=== PATIENT | male | born 1960 | race Caucasian/White ===

== ENCOUNTER 2020-10-12 12:07 | Outpatient (REF) | payer MEDICARE, MEDICAID, SELFPAY | END 2020-10-12 12:08 | disposition home or self-care (01) | LOC: HO.HAP 12:07 | PROVIDERS: Visit Provider Student in an Organized Health Care Education/Training Program | DX: Z46.1 Encounter for fitting and adjustment of hearing aid (principal) | CPT/HCPCS: V5266 ==

== ENCOUNTER 2021-03-01 15:49 | Emergency (ER) | payer MEDICARE, MEDICAID, SELFPAY ==
--- NOTE | 2021-03-01 | ECG_ITS ---
Test Reason : HTN Blood Pressure : / mmHG Vent. Rate : 069 BPM Atrial Rate : 069 BPM P-R Int : 162 ms QRS Dur : 094 ms QT Int : 394 ms P-R-T Axes : 066 023 038 degrees QTc Int : 422 ms Normal sinus rhythm with sinus arrhythmia Normal ECG When compared with ECG of 21-OCT-2016 12:43, No significant change was found Referred By: Erin Thomas Electronically Signed By:BRETT REYNOSO
--- NOTE | ~2021-03-01 | CT_ITS ---
EXAMINATION: CT HEAD WITHOUT CONTRAST CLINICAL INFORMATION: Hyperdense urgency with left-sided weakness. COMPARISON: None TECHNIQUE: Contiguous axial imaging was performed from the skull base to vertex without intravenous administration of contrast. This CT examination was performed using dose optimization techniques as appropriate, variously including the following: *Automated exposure control *Adjustment of mA and/or kV according to patient size (this includes techniques or standardized protocols for targeted exams where dose is matched to indication/reason for exam; i.e. extremities or head) *Use of iterative reconstruction technique DLP: 781 mGy-cm FINDINGS: There is no evidence of acute intracranial hemorrhage or territorial infarction. No abnormal mass effect or midline shift is seen. There is punctate bibasilar ganglia calcifications. Garay to white matter differentiation is well preserved. No extra-axial fluid collections are identified. The ventricles are normal in size. There is no abnormal attenuation within the brain parenchyma. The osseous structures and soft tissues are normal. The mastoid air cells and visualized portions of the paranasal sinuses are well aerated. CT/CT head/brain wo con IMPRESSION: No acute intracranial pathology.
[2021-03-01 16:00] VITALS: BP 191/98; PULSE 74; RESP 16; TEMP 36.6; O2SAT 99; BMI 27.2
--- NOTE | 2021-03-01 16:14 | ED_ITS ---
HPI - General Adult General Chief complaint: General Medical <TWILA Betancourt - Last Filed: 03/01/21 18:26> Stated complaint: HTN 203/109,LEFT SIDED FACIAL NUMBNESS <TWILA Betancourt - Last Filed: 03/01/21 18:26> Time Seen by Provider: 03/01/21 16:02 <TWILA Betancourt - Last Filed: 03/01/21 18:26> Source: patient and EMS <TWILA Betancourt - Last Filed: 03/01/21 18:26> Mode of arrival: EMS <TWILA Betancourt Last Filed: 03/01/21 18:26> Limitations: no limitations <TWILA Betancourt Last Filed: 03/01/21 18:26> History of Present Illness HPI narrative: 60 y/o male with history of hypothyroidism, HLD, HTN who presents to the ER via EMS from [facility] with severe hypertension 200/110 associated with temporary left sided facial numbness, now resolved. He reports compliance with his antihypertensive medications but cannot recall the names of them. He denies chest pain, SOB, vision changes, headaches, focal weakness. He is not on anticoagulation or aspirin. He reports his baseline BP at home is usually in the 130/90 range. Today he took it several times after taking his medications and it remained very elevated to he went to urgent care for evaluation. He has not seen his PCP at [facility] in almost 2 years because of COVID. <TWILA Betancourt - Last Filed: 03/01/21 18:26> MD complaint: HTN <TWILA Betancourt - Last Filed: 03/01/21 18:26> Onset (ago): hour(s) <TWILA Betancourt Last Filed: 03/01/21 18:26> Location: face <TWILA Betancourt Last Filed: 03/01/21 18:26> Radiation: non-radiation <TWILA Betancourt Last Filed: 03/01/21 18:26> Severity: mild <TWILA Betancourt Last Filed: 03/01/21 18:26> Relieving factors: none <TWILA Betancourt Last Filed: 03/01/21 18:26> Exacerbating factors: none <TWILA Betancourt Last Filed: 03/01/21 18:26> Associated symptoms: denies other symptoms <TWILA Betancourt Last Filed: 03/01/21 18:26> Treatments prior to arrival: none <TWILA Betancourt Last Filed: 03/01/21 18:26> Related Data Home medications: Home Medications Medication Instructions Recorded Confirmed atorvastatin 1 tab PO DAILY 03/01/21 03/01/21 carvedilol 1 tab PO BID 03/01/21 03/01/21 fluticasone propionate [Flovent 1 puff PO BID 03/01/21 03/01/21 Diskus] gemfibrozil 1 tab PO BID 03/01/21 03/01/21 levothyroxine 1 tab PO DAILY 03/01/21 03/01/21 omeprazole 1 cap PO DAILY 03/01/21 03/01/21 Previous Rx's Medication Instructions Recorded carvedilol [Coreg] 25 mg PO BID #20 tab 03/01/21 <TWILA Betancourt Last Filed: 03/01/21 18:26> Allergies/adverse reactions: Allergies Allergy/AdvReac Type Severity Reaction Status Date / Time No Known Allergies Allergy Unverified 02/25/21 13:40 [No Known Allergies*] <TWILA Betancourt Last Filed: 03/01/21 18:26> Review of Systems Review of Systems: Constitutional: No Fever, No Chills Eyes: No Eye Pain, No vision changes Cardiovascular: No Chest Pain, No SOB, No Orthopnea, No Edema Respiratory: No Cough, No Sputum, No Wheezing, No dyspnea Gastrointestinal: No Nausea, No Vomiting, No Diarrhea, No abdominal Pain Genitourinary: No Dysuria, No Urinary Frequency, No Hematuria Musculoskeletal: No joint pain, No Myalgias Skin: No Skin Lesions, No rash Neuro: No Weakness, + Numbness, No Dizziness, No Headache Psych: + Anxiety/Panic, No Depression Heme/Lymph: No Bruising, No Lymphadenopathy Endocrine: No Polyuria, No Polydipsia <TWILA Betancourt Last Filed: 03/01/21 18:26> [facility] Past Medical History Attestation statement: The following information was validated with the patient. <TWILA Betancourt - Last Filed: 03/01/21 18:26> Medical History: Medical History (Updated 03/01/21 @ 18:20 by TWILA Betancourt) Hyperlipidemia Hypothyroid <TWILA Betancourt - Last Filed: 03/01/21 18:26> Social History Social History: Social History (System 02/25/21 @ 13:40 by Chantale Simeon) Use of substances other than those prescribed or required for medical reasons: Yes Substance Use Type: Crack/Cocaine Advance Directives: No Advance Directives Information Provided: Yes <TWILA Betancourt - Last Filed: 03/01/21 18:26> Physical Exam Vital Signs: Vital Signs: Last Vital Signs Temp 98 F 03/01/21 16:00 Pulse 92 03/01/21 18:12 Resp 18 03/01/21 18:00 BP 171/103 H 03/01/21 18:12 Pulse Ox 98 03/01/21 18:00 Body Mass Index 27.2 Appearance: Alert. Oriented X3. No acute distress. Eyes: Pupils equal, round and reactive to light. ENT: Pharynx normal. Neck: Normal inspection. Neck supple. CVS: Normal heart rate and rhythm. Pulses normal. Respiratory: No respiratory distress. Breath sounds normal. Abdomen: Soft and nontender. +BS x4 Skin: Skin warm and dry. Normal skin color. Normal skin turgor. No rashes. Extremities: No lower extremity edema. Neuro: Oriented X 3. No motor deficit. No sensory deficit. NIH 0 <TWILA Betancourt - Last Filed: 03/01/21 18:26> Vital Signs: Last Vital Signs Temp 98 F 03/01/21 16:00 Pulse 92 03/01/21 18:12 Resp 18 03/01/21 18:00 BP 171/103 H 03/01/21 18:12 Pulse Ox 98 03/01/21 18:00 Body Mass Index 27.2 <Deepak Nolen MD - Last Filed: 03/01/21 18:12> Course Course Course Narrative: 60 y/o male with history of HTN presenting with elevated BP 200/110 along with brief left facial numbness/tingling, now resolved. Doubt TIA without other symptoms. NIH 0. No headache or chest pain. BP slightly improved on arrival 191/98. Asymptomatic at this time. Will get EKG, basic labs and CT head, although suspicion for ICH is low. <TWILA Betancourt - Last Filed: 03/01/21 18:26> Reevaluation(s) Reevaluation #1: Lab workup and CT head are unremarkable. BP improved on its own 170-180 systolic. HR stable 70's. Will plan to give additional dose of Coreg 12.5 and increase his home dose of 25 mg BID. He was counseled on management, monitoring and need for f/u with PCP. We also discussed warning signs to prompt urgent re- evaluation. At this time patient is stable for d/c homw with increase in his home Coreg and outpatient follow up. Case d/w Dr. Nolen. <TWILA Betancourt - Last Filed: 03/01/21 18:26> I have discussed the case and management with the BRITNEY <Deepak Nolen MD - Last Filed: 03/01/21 18:12> Time: 18:12 <Deepak Nolen MD - Last Filed: 03/01/21 18:12> Medical Decision Making Lab Data Result diagrams: : 03/01/21 16:50 03/01/21 16:50 <TWILA Betancourt - Last Filed: 03/01/21 18:26> Labs: Lab Results 03/01/21 03/01/21 03/01/21 Range/Units 16:50 16:50 16:50 WBC 6.9 (4.8-10.8) X10*3/uL RBC 4.69 (4.60-5.80) X10*6/uL Hgb 13.8 L (14.0-18.0) g/dl Hct 41.6 L (42-52) % MCV 88.7 (80-98) fL MCH 29.4 (27.0-33.0) pg MCHC 33.2 (31.0-36.0) g/dl RDW 13.1 (11.0-16.0) % Plt Count 233 (160-400) X10*3/uL MPV 10.5 (9.4-12.4) fL Immature Gran % (Auto) 0.1 (0.0-0.4) % Neut % (Auto) 51.6 (45-73) % Lymph % (Auto) 37.3 (20-40) % Sandoval % (Auto) 8.0 (2-11) % Eos % (Auto) 2.6 (0-4) % Baso % (Auto) 0.4 (0-2) % Lymph # (Auto) 2.6 (1.2-4.9) X10*3/uL Sandoval # (Auto) 0.6 (0.1-1.2) X10*3/uL Eos # (Auto) 0.2 (0.0-0.4) X10*3/uL Baso # (Auto) 0.0 (0.0-0.2) X10*3/uL Abs Immat Gran (auto) 0.01 (0.00-0.03) X10*3/uL Absolute Neuts (auto) 3.6 (2.0-8.3) X10*3/uL Absolute Nucleated RBC 0.000 (0.0-0.012) X10*3/uL Nucleated RBC % (auto) 0.0 (0.0-0.2) /100WBC Sodium 141 (135-145) mmol/L Potassium 4.0 (3.3-5.1) mmol/L Chloride 106 (96-108) mmol/L Carbon Dioxide 25 (22-29) mmol/L Anion Gap 14 (12-20) BUN 16 (9-16) mg/dL Creatinine 0.99 (0.5-1.4) mg/dL Estim Creat Clear Calc 72.3 Estimated GFR > 60 Random Glucose 114 (60-115) mg/dL Calcium 9.1 (8.4-10.2) mg/dL Magnesium 1.9 (1.6-2.6) mg/dL Total Bilirubin 0.4 (0.0-1.0) mg/dL Direct Bilirubin 0.2 (0.0-0.5) mg/dL AST 24 (5-37) U/L ALT 25 (0-40) U/L Alkaline Phosphatase 84 (39-117) U/L Troponin I High Sens < 3.5 (<3.5-35.0) ng/L Total Protein 7.6 (6.5-8.0) g/dL Albumin 4.5 (3.5-5.0) g/dL Urine Color Urine Appearance Urine pH (5.0-8.0) Ur Specific Grafton (1.005-1.025) Urine Protein (NEG-TRACE) MG/DL Urine Glucose (UA) (NEG) MG/DL Urine Ketones (NEG) MG/DL Urine Blood (NEG) Urine Nitrite (NEG) Ur Leukocyte Esterase (NEG) 03/01/21 Range/Units 16:50 WBC (4.8-10.8) X10*3/uL RBC (4.60-5.80) X10*6/uL Hgb (14.0-18.0) g/dl Hct (42-52) % MCV (80-98) fL MCH (27.0-33.0) pg MCHC (31.0-36.0) g/dl RDW (11.0-16.0) % Plt Count (160-400) X10*3/uL MPV (9.4-12.4) fL Immature Gran % (Auto) (0.0-0.4) % Neut % (Auto) (45-73) % Lymph % (Auto) (20-40) % Sandoval % (Auto) (2-11) % Eos % (Auto) (0-4) % Baso % (Auto) (0-2) % Lymph # (Auto) (1.2-4.9) X10*3/uL Sandoval # (Auto) (0.1-1.2) X10*3/uL Eos # (Auto) (0.0-0.4) X10*3/uL Baso # (Auto) (0.0-0.2) X10*3/uL Abs Immat Gran (auto) (0.00-0.03) X10*3/uL Absolute Neuts (auto) (2.0-8.3) X10*3/uL Absolute Nucleated RBC (0.0-0.012) X10*3/uL Nucleated RBC % (auto) (0.0-0.2) /100WBC Sodium (135-145) mmol/L Potassium (3.3-5.1) mmol/L Chloride (96-108) mmol/L Carbon Dioxide (22-29) mmol/L Anion Gap (12-20) BUN (9-16) mg/dL Creatinine (0.5-1.4) mg/dL Estim Creat Clear Calc Estimated GFR Random Glucose (60-115) mg/dL Calcium (8.4-10.2) mg/dL Magnesium (1.6-2.6) mg/dL Total Bilirubin (0.0-1.0) mg/dL Direct Bilirubin (0.0-0.5) mg/dL AST (5-37) U/L ALT (0-40) U/L Alkaline Phosphatase (39-117) U/L Troponin I High Sens (<3.5-35.0) ng/L Total Protein (6.5-8.0) g/dL Albumin (3.5-5.0) g/dL Urine Color STRAW Urine Appearance CLEAR Urine pH 6.0 (5.0-8.0) Ur Specific Grafton <= 1.005 (1.005-1.025) Urine Protein NEG (NEG-TRACE) MG/DL Urine Glucose (UA) NEG (NEG) MG/DL Urine Ketones NEG (NEG) MG/DL Urine Blood NEG (NEG) Urine Nitrite NEG (NEG) Ur Leukocyte Esterase NEG (NEG) <TWILA Betancourt - Last Filed: 03/01/21 18:26> Lab Results 03/01/21 03/01/21 03/01/21 Range/Units 16:50 16:50 16:50 WBC 6.9 (4.8-10.8) X10*3/uL RBC 4.69 (4.60-5.80) X10*6/uL Hgb 13.8 L (14.0-18.0) g/dl Hct 41.6 L (42-52) % MCV 88.7 (80-98) fL MCH 29.4 (27.0-33.0) pg MCHC 33.2 (31.0-36.0) g/dl RDW 13.1 (11.0-16.0) % Plt Count 233 (160-400) X10*3/uL MPV 10.5 (9.4-12.4) fL Immature Gran % (Auto) 0.1 (0.0-0.4) % Neut % (Auto) 51.6 (45-73) % Lymph % (Auto) 37.3 (20-40) % Sandoval % (Auto) 8.0 (2-11) % Eos % (Auto) 2.6 (0-4) % Baso % (Auto) 0.4 (0-2) % Lymph # (Auto) 2.6 (1.2-4.9) X10*3/uL Sandoval # (Auto) 0.6 (0.1-1.2) X10*3/uL Eos # (Auto) 0.2 (0.0-0.4) X10*3/uL Baso # (Auto) 0.0 (0.0-0.2) X10*3/uL Abs Immat Gran (auto) 0.01 (0.00-0.03) X10*3/uL Absolute Neuts (auto) 3.6 (2.0-8.3) X10*3/uL Absolute Nucleated RBC 0.000 (0.0-0.012) X10*3/uL Nucleated RBC % (auto) 0.0 (0.0-0.2) /100WBC Sodium 141 (135-145) mmol/L Potassium 4.0 (3.3-5.1) mmol/L Chloride 106 (96-108) mmol/L Carbon Dioxide 25 (22-29) mmol/L Anion Gap 14 (12-20) BUN 16 (9-16) mg/dL Creatinine 0.99 (0.5-1.4) mg/dL Estim Creat Clear Calc 72.3 Estimated GFR > 60 Random Glucose 114 (60-115) mg/dL Calcium 9.1 (8.4-10.2) mg/dL Magnesium 1.9 (1.6-2.6) mg/dL Total Bilirubin 0.4 (0.0-1.0) mg/dL Direct Bilirubin 0.2 (0.0-0.5) mg/dL AST 24 (5-37) U/L ALT 25 (0-40) U/L Alkaline Phosphatase 84 (39-117) U/L Troponin I High Sens < 3.5 (<3.5-35.0) ng/L Total Protein 7.6 (6.5-8.0) g/dL Albumin 4.5 (3.5-5.0) g/dL Urine Color Urine Appearance Urine pH (5.0-8.0) Ur Specific Grafton (1.005-1.025) Urine Protein (NEG-TRACE) MG/DL Urine Glucose (UA) (NEG) MG/DL Urine Ketones (NEG) MG/DL Urine Blood (NEG) Urine Nitrite (NEG) Ur Leukocyte Esterase (NEG) 03/01/21 Range/Units 16:50 WBC (4.8-10.8) X10*3/uL RBC (4.60-5.80) X10*6/uL Hgb (14.0-18.0) g/dl Hct (42-52) % MCV (80-98) fL MCH (27.0-33.0) pg MCHC (31.0-36.0) g/dl RDW (11.0-16.0) % Plt Count (160-400) X10*3/uL MPV (9.4-12.4) fL Immature Gran % (Auto) (0.0-0.4) % Neut % (Auto) (45-73) % Lymph % (Auto) (20-40) % Sandoval % (Auto) (2-11) % Eos % (Auto) (0-4) % Baso % (Auto) (0-2) % Lymph # (Auto) (1.2-4.9) X10*3/uL Sandoval # (Auto) (0.1-1.2) X10*3/uL Eos # (Auto) (0.0-0.4) X10*3/uL Baso # (Auto) (0.0-0.2) X10*3/uL Abs Immat Gran (auto) (0.00-0.03) X10*3/uL Absolute Neuts (auto) (2.0-8.3) X10*3/uL Absolute Nucleated RBC (0.0-0.012) X10*3/uL Nucleated RBC % (auto) (0.0-0.2) /100WBC Sodium (135-145) mmol/L Potassium (3.3-5.1) mmol/L Chloride (96-108) mmol/L Carbon Dioxide (22-29) mmol/L Anion Gap (12-20) BUN (9-16) mg/dL Creatinine (0.5-1.4) mg/dL Estim Creat Clear Calc Estimated GFR Random Glucose (60-115) mg/dL Calcium (8.4-10.2) mg/dL Magnesium (1.6-2.6) mg/dL Total Bilirubin (0.0-1.0) mg/dL Direct Bilirubin (0.0-0.5) mg/dL AST (5-37) U/L ALT (0-40) U/L Alkaline Phosphatase (39-117) U/L Troponin I High Sens (<3.5-35.0) ng/L Total Protein (6.5-8.0) g/dL Albumin (3.5-5.0) g/dL Urine Color STRAW Urine Appearance CLEAR Urine pH 6.0 (5.0-8.0) Ur Specific Grafton <= 1.005 (1.005-1.025) Urine Protein NEG (NEG-TRACE) MG/DL Urine Glucose (UA) NEG (NEG) MG/DL Urine Ketones NEG (NEG) MG/DL Urine Blood NEG (NEG) Urine Nitrite NEG (NEG) Ur Leukocyte Esterase NEG (NEG) <Deepak Nolen MD - Last Filed: 03/01/21 18:12> ECG Data Attestation: I personally reviewed and interpreted this ECG as follows: <TWILA Betancourt - Last Filed: 03/01/21 18:26> Interpretation: normal sinus rhythm with sinus arrythmia, HR 69 bpm, normal TN interval, normal QTc, no ST elevations or depressions. <TWILA Betancourt - Last Filed: 03/01/21 18:26> Discharge Plan Discharge Clinical Impression: Poorly-controlled hypertension <TWILA Betancourt - Last Filed: 03/01/21 18:26> Patient Disposition: Home, Self-Care <TWILA Betancourt - Last Filed: 03/01/21 18:26> Instructions: DASH Eating Plan (ED), Hypertension (ED) <TWILA Betancourt - Last Filed: 03/01/21 18:26> Additional Instructions: Your lab workup was unremarkable. Your CT scan was normal. Your blood pressure was elevated today. Recommend starting an increased dose of your blood pressure medication and following up with your doctor in 1 week. Start carvedilol 25 mg two times per day, your previous dose was 12.5 mg. If your blood pressure is less than 120/80, just take your previous dose of 12.5 mg. Monitor your blood pressure two times per day at home and keep a record for your doctor. If you develop chest pain, dizziness, headache, vision changes, or any other concerning symptoms call 911 or come back tot he ER for further evaluation. <TWILA Betancourt - Last Filed: 03/01/21 18:26> Prescriptions: New carvedilol [Coreg] 25 mg tablet 25 mg PO BID Qty: 20 RF: 0 No Action atorvastatin 40 mg tablet 1 tab PO DAILY RF: 0 carvedilol 12.5 mg tablet 1 tab PO BID RF: 0 gemfibrozil 600 mg tablet 1 tab PO BID RF: 0 levothyroxine 125 mcg tablet 1 tab PO DAILY RF: 0 omeprazole 20 mg capsule,delayed release(DR/EC) 1 cap PO DAILY RF: 0 Flovent Diskus 250 mcg/actuation blister with device 1 puff PO BID RF: 0 <TWILA Betancourt - Last Filed: 03/01/21 18:26> Referrals: Nieves Sagastume MD [Primary Care Provider] - 5 days (elevated BP, coreg increased) <TWILA Betancourt - Last Filed: 03/01/21 18:26>
[2021-03-01 16:57] LABS: MANUAL DIFF FLAG NO
[2021-03-01 17:00] LABS: Glucose Urine UA NEG (NEG); Leukocyte Esterase Urine NEG (NEG); Nitrite Urine NEG (NEG); Specific Gravity - Urine <= 1.005 (1.005-1.025); Urine Blood NEG (NEG); Urine Ketones NEG (NEG); Urine Protein NEG (NEG-TRACE)
[2021-03-01 17:02] LABS: Appearance Urine CLEAR; Color Urine STRAW
--- NOTE | 2021-03-01 17:09 | PHA.MEDREC ---
Pharmacy Consult ? Medication Reconciliation Pharmacy has completed the medication reconciliation. There are no remarkable issues for provider's attention. Patient unsure if he is taking folic acid. It did not sound familar to him. Radha Montgomery, PharmD
[2021-03-01 17:16] LABS: Basophils Percent Auto 0.4 % (0-2); Eosinophils Absolute Auto 0.2 X10*3/uL (0.0-0.4); Eosinophils Percent Auto 2.6 % (0-4); Hematocrit 41.6 % (42-52); Hemoglobin 13.8 g/dl (14.0-18.0); Imm Gran Abs Auto 0.01 X10*3/uL (0.00-0.03); Imm Gran Pct Auto 0.1 % (0.0-0.4); Lymphocytes Absolute Auto 2.6 X10*3/uL (1.2-4.9); Lymphocytes Percent Auto 37.3 % (20-40); Mean Corpuscular HGB Conc 33.2 g/dl (31.0-36.0); Mean Corpuscular Hemoglobin 29.4 pg (27.0-33.0); Mean Corpuscular Volume 88.7 fL (80-98); Mean Platelet Volume 10.5 fL (9.4-12.4); Monocytes Absolute Auto 0.6 X10*3/uL (0.1-1.2); Neutrophils Absolute Auto 3.6 X10*3/uL (2.0-8.3); Neutrophils Percent Auto 51.6 % (45-73); Platelet Count 233 X10*3/uL (160-400); Red Blood Count 4.69 X10*6/uL (4.60-5.80); Red Cell Distribution Width 13.1 % (11.0-16.0); White Blood Count 6.9 X10*3/uL (4.8-10.8)
[2021-03-01 17:27] LABS: Alanine Aminotransferase 25 U/L (0-40); Albumin Level 4.5 g/dL (3.5-5.0); Alkaline Phosphatase 84 U/L (39-117); Anion Gap 14 (12-20); Aspartate Amino Transferase 24 U/L (5-37); Bilirubin Direct 0.2 mg/dL (0.0-0.5); Bilirubin Total 0.4 mg/dL (0.0-1.0); Blood Urea Nitrogen 16 mg/dL (9-16); Calcium 9.1 mg/dL (8.4-10.2); Carbon Dioxide 25 mmol/L (22-29); Chloride 106 mmol/L (96-108); Creatinine Clr Calc Pharmacy 72.3; Estimated Glomerular Filt Rate > 60; Glucose Random 114 mg/dL (60-115); Magnesium 1.9 mg/dL (1.6-2.6); Sodium 141 mmol/L (135-145); Total Protein 7.6 g/dL (6.5-8.0)
[2021-03-01 17:30] LABS: Troponin-I High Sensitivity < 3.5 ng/L (<3.5-35.0)
[2021-03-01 18:00] VITALS: BP 171/103; PULSE 71; RESP 18; O2SAT 98
[2021-03-01 18:12] VITALS: BP 171/103; PULSE 92
[2021-03-01] MEDS: carvediloL 12.5 MG TABLET PO (18:12)
== END 2021-03-01 18:31 | disposition home or self-care (01) ==
PROVIDERS: Physician Assistant; Emergency Provider Emergency Medicine; PCP Student in an Organized Health Care Education/Training Program
DX: I10 Essential (primary) hypertension (principal)
CPT/HCPCS: 36415; 70450; 80048; 80076; 81003; 83735; 84484; 85025; 93005; 99284

== ENCOUNTER 2021-03-22 15:13 | Emergency (ER) | payer MEDICARE, MEDICAID, SELFPAY ==
[2021-03-22 15:39] VITALS: BP 200/102; PULSE 75; RESP 18; TEMP 36.7; O2SAT 99; BMI 27.3
== END 2021-03-22 18:00 | disposition left against medical advice (07) ==
PROVIDERS: Emergency Provider Emergency Medicine; PCP Student in an Organized Health Care Education/Training Program
DX: I10 Essential (primary) hypertension (principal)
CPT/HCPCS: 99281; 99282

== ENCOUNTER → 2021-05-12 13:45 | Outpatient (BNVA) | payer MEDICARE, MEDICAID, SELFPAY | PROVIDERS: Visit Provider Urology | DX: N40.1 Benign prostatic hyperplasia with lower urinary tract symptoms (principal); N13.8 Other obstructive and reflux uropathy | CPT/HCPCS: 51798; 99202 ==

== ENCOUNTER 2021-07-13 13:29 | Outpatient (REF) | payer MEDICARE, MEDICAID, SELFPAY | END 2021-07-13 13:30 | disposition home or self-care (01) | LOC: HO.HAP 13:29 | PROVIDERS: Visit Provider Student in an Organized Health Care Education/Training Program | DX: Z46.2 Encounter for fitting and adjustment of other devices related to nervous system and special senses (principal) | CPT/HCPCS: V5266 ==

== ENCOUNTER 2021-07-13 13:35 | Outpatient (REF) | payer SELFPAY | END 2021-07-13 13:36 | disposition home or self-care (01) | LOC: HO.HAP 13:35 | PROVIDERS: Visit Provider Student in an Organized Health Care Education/Training Program | DX: Z46.1 Encounter for fitting and adjustment of hearing aid (principal); H90.6 Mixed conductive and sensorineural hearing loss, bilateral | CPT/HCPCS: V5267 ==

== ENCOUNTER 2022-04-04 11:45 | Outpatient (REF) | payer MEDICARE, MEDICAID, SELFPAY | END 2022-04-04 11:46 | disposition home or self-care (01) | LOC: HO.HAP 11:45 | PROVIDERS: Visit Provider Student in an Organized Health Care Education/Training Program | DX: Z46.1 Encounter for fitting and adjustment of hearing aid (principal); H90.3 Sensorineural hearing loss, bilateral | CPT/HCPCS: V5266 ==

== ENCOUNTER 2022-08-05 11:39 | Outpatient (REF) | payer SELFPAY | END 2022-08-05 11:40 | disposition home or self-care (01) | LOC: HO.HAP 11:39 | PROVIDERS: Visit Provider Student in an Organized Health Care Education/Training Program | DX: Z46.1 Encounter for fitting and adjustment of hearing aid (principal); H90.3 Sensorineural hearing loss, bilateral | CPT/HCPCS: V5267 ==

== ENCOUNTER 2022-12-28 11:37 | Outpatient (REF) | payer MEDICARE, MEDICAID, SELFPAY | END 2022-12-28 11:38 | disposition home or self-care (01) | LOC: HO.HAP 11:37 | PROVIDERS: Visit Provider Student in an Organized Health Care Education/Training Program | DX: Z46.1 Encounter for fitting and adjustment of hearing aid (principal); H90.3 Sensorineural hearing loss, bilateral | CPT/HCPCS: V5266 ==

== ENCOUNTER 2023-01-17 08:42 | Outpatient (REF) | payer MEDICARE, MEDICAID, SELFPAY | END 2023-01-17 08:43 | disposition home or self-care (01) | LOC: HO.HAP 08:42 | PROVIDERS: Visit Provider Student in an Organized Health Care Education/Training Program | DX: Z13.89 Encounter for screening for other disorder (principal) ==

== ENCOUNTER 2023-01-31 13:30 | Outpatient (REF) | payer MEDICARE, MEDICAID, SELFPAY | END 2023-01-31 13:31 | disposition home or self-care (01) | LOC: HO.HAP 13:30 | PROVIDERS: Visit Provider Student in an Organized Health Care Education/Training Program | DX: Z46.1 Encounter for fitting and adjustment of hearing aid (principal); H90.3 Sensorineural hearing loss, bilateral | CPT/HCPCS: V5014 ==

== ENCOUNTER 2023-05-16 09:20 | Outpatient (REF) | payer SELFPAY | END 2023-05-16 09:21 | disposition home or self-care (01) | LOC: HO.HAP 09:20 | PROVIDERS: Visit Provider Student in an Organized Health Care Education/Training Program | DX: H90.3 Sensorineural hearing loss, bilateral (principal); Z46.1 Encounter for fitting and adjustment of hearing aid | CPT/HCPCS: V5267 ==

== ENCOUNTER 2023-10-02 10:09 | Outpatient (REF) | payer MEDICARE, MEDICAID, SELFPAY | END 2023-10-02 10:10 | disposition home or self-care (01) | LOC: HO.HAP 10:09 | PROVIDERS: Visit Provider Student in an Organized Health Care Education/Training Program | DX: Z46.1 Encounter for fitting and adjustment of hearing aid (principal); H90.3 Sensorineural hearing loss, bilateral | CPT/HCPCS: V5266 ==

== ENCOUNTER 2023-10-02 10:15 | Outpatient (REF) | payer SELFPAY | END 2023-10-02 10:16 | disposition home or self-care (01) | LOC: HO.HAP 10:15 | PROVIDERS: Visit Provider Student in an Organized Health Care Education/Training Program | DX: Z46.1 Encounter for fitting and adjustment of hearing aid (principal); H90.3 Sensorineural hearing loss, bilateral | CPT/HCPCS: V5267 ==

== ENCOUNTER 2024-02-07 09:27 | Outpatient (REF) | payer MEDICARE, MEDICAID, SELFPAY | END 2024-02-07 09:28 | disposition home or self-care (01) | LOC: HO.HAP 09:27 | PROVIDERS: Visit Provider Student in an Organized Health Care Education/Training Program | DX: Z13.89 Encounter for screening for other disorder (principal) ==

== ENCOUNTER 2024-02-09 11:22 | Outpatient (REF) | payer MEDICARE, MEDICAID, SELFPAY | END 2024-02-09 11:23 | disposition home or self-care (01) | LOC: HO.HAP 11:22 | PROVIDERS: Visit Provider Student in an Organized Health Care Education/Training Program | DX: Z46.1 Encounter for fitting and adjustment of hearing aid (principal); H90.3 Sensorineural hearing loss, bilateral | CPT/HCPCS: 92592; 92700; 99499 ==

== ENCOUNTER 2024-02-19 14:08 | Outpatient (REF) | payer MEDICARE, MEDICAID, SELFPAY ==
--- NOTE | 2024-02-19 15:25 | MHC.AU.HA3 ---
Hearing Instrument Follow-Up- Binaural Date of Visit: 02/19/24 Left Ear: Make, Model, Color, Serial Number: Oticon Ner 2 Pro RITE Dark Garay #[id number] Water Aerobics Instructor Repair Warranty: new Warranty 08/12/2023 Water Aerobics Instructor Loss and Damage Warranty: [facility] Service Plan: Battery Size: 312 Patent Engineer/Slim Tube: #3 85 gain Earmold/Dome/CShell/SlimTip: Oticon Micro Skeleton Mold #[id number] warranty Type of Wax Guard: Pro Wax Dispensed By: [facility] Date of Fittin Follow-Up Summary: Left hearing aid dropped off, . Found wax blockage behind the wax guard on the earmold. Cleaned. Listening check positive after cleaning. Recommendations: Recommendations: Hearing instrument follow-up or maintenance as needed. Diagnosis Code(s): Primary Diagnosis: H90.3 Bilateral Sensorineural Hearing Loss Signature: Provider: Mariola Ford, CCC-A
== END 2024-02-19 14:09 | disposition home or self-care (01) ==
LOC: HO.HAP 14:08
PROVIDERS: Visit Provider Student in an Organized Health Care Education/Training Program
DX: Z13.89 Encounter for screening for other disorder (principal)

== ENCOUNTER 2024-02-22 09:08 | Outpatient (REF) | payer MEDICARE, MEDICAID, SELFPAY | END 2024-02-22 09:09 | disposition home or self-care (01) | LOC: HO.HAP 09:08 | PROVIDERS: Visit Provider Student in an Organized Health Care Education/Training Program | DX: Z46.1 Encounter for fitting and adjustment of hearing aid (principal); H90.3 Sensorineural hearing loss, bilateral | CPT/HCPCS: 92592 ==

== ENCOUNTER 2024-05-14 09:12 | Outpatient (REF) | payer MEDICARE, MEDICAID, SELFPAY ==
[2024-05-14 14:52] LABS: Alanine Aminotransferase 14 U/L (0-40); Albumin Level 4.2 g/dL (3.5-5.0); Alkaline Phosphatase 70 U/L (39-117); Anion Gap 10 (12-20); Aspartate Amino Transferase 17 U/L (5-37); Bilirubin Direct 0.1 mg/dL (0.0-0.5); Bilirubin Total 0.4 mg/dL (0.0-1.0); Blood Urea Nitrogen 10 mg/dL (9-16); Calcium 9.3 mg/dL (8.4-10.2); Carbon Dioxide 29 mmol/L (22-29); Chloride 109 mmol/L (96-108); Cholesterol 156 mg/dL (<200); Estimated Glomerular Filt Rate > 60; Glucose Random 82 mg/dL (60-115); HDL Cholesterol 38 mg/dL (>40); LDL Cholesterol Calculated 69 mg/dL (<100); Sodium 144 mmol/L (135-145); TSH reflex Free T4 0.93 uIU/mL (0.32-4.0); Total Protein 7.7 g/dL (6.5-8.0); Triglycerides 245 mg/dL (<150)
[2024-05-14 14:53] LABS: PSA,Total (Free>4and<10) 0.79 ng/mL (0.00-4.00)
== END 2024-05-14 09:13 | disposition home or self-care (01) ==
LOC: HO.CHCLDS 09:12
PROVIDERS: Visit Provider Student in an Organized Health Care Education/Training Program
DX: I10 Essential (primary) hypertension (principal); E03.9 Hypothyroidism, unspecified; N40.1 Benign prostatic hyperplasia with lower urinary tract symptoms; R35.0 Frequency of micturition; Z12.5 Encounter for screening for malignant neoplasm of prostate
CPT/HCPCS: 36415; 80048; 80061; 80076; 84153; 84443

== ENCOUNTER 2024-10-30 14:14 | Outpatient (AMB) | payer MEDICARE, MEDICAID, SELFPAY ==
--- NOTE | 2024-10-30 14:32 | A.OFFVIS_ITS ---
Vital Signs 10/30/24 14:34 Height 5 ft 7 in Weight 170 lb 10.205 oz BMI 26.7 BP 152/70 H Blood Pressure Location Rt brachial Position Sitting Pulse 68 Pulse Source Pulse Oximeter Pulse Oximetry (%) 99 Oxygen Delivery Method Room Air Intake Visit Reasons: [place] screening, r/s x1 Intake Note: NEW PATIENT for 3rd lifetime colo screening. Last 2016 w/ Dr. Klein. Chief Complaint; C/O constipation w/ concern for active hemorrhoid. Pt denies any abd pain at this time. No additional sx or concerns at this time per pt. Entertainment Manager Required: Yes Entertainment Manager Services: Entertainment Manager Present Entertainment Manager Name: Elin Huerta [id number] Information Interpreted: clinical only Accompanied by: Self / Same As Patient Allergies No Known Allergies [No Known Allergies*] Allergy (Verified 10/30/24 14:33) HPI HPI [place] screening, r/s x1: Details: 64 year old? male here today for pre colonoscopy screening.? Patient was sent to us by his PCP.? Last colonoscopy in 2017. History of tubular adenomas in the past.? Patient denies any gastrointestinal symptoms in the past or at present.? However patient admits to constipation. Patient reports occasional bloating after bowel movement when constipated. Denies any personal or family history of gastrointestinal disease, colon polyps, or CRC.? Denies history of difficulty with sedation or anesthesia in the past.? Negative for history of sleep apnea.? Denies any history of cardiac, renal, pulmonary, or hepatic disease.?? No history of infectious? diseases like hepatitis A, B, C, HIV or tuberculosis.? Patient is not on any anticoagulation [facility] Medical History (Updated 10/30/24 @ 15:17 by Elana Poon [facility]) Dysphagia Tubular adenoma of colon Coronary artery disease Polysubstance abuse GERD (gastroesophageal reflux disease) Hyperlipidemia Hypothyroid Surgical History History of surgery Social History Substance Use Type: Crack/Cocaine Review of Systems Const Denies weight gain and Denies weight loss ENT Reports no additional complaints, Denies dysphagia and Denies odynophagia Card Reports no additional complaints Resp Reports no additional complaints GI Denies abdominal pain, Denies belching, Denies melena, Reports bloating, Reports hematochezia (Occasional), Denies change in bowel habits, Reports constipation, Denies dysphagia, Denies excessive flatus, Denies dyspepsia, Denies heartburn, Denies diarrhea, Denies loose stools, Denies nausea, Denies odynophagia and Denies vomiting Reports no additional complaints Musc Reports no additional complaints Neuro Reports no additional complaints Psych Reports no additional complaints Endo Reports no additional complaints Physical Exam Const General: healthy appearing, no acute distress and well developed Nutritional Appearance: well nourished Orientation/consciousness: patient oriented x3 Resp Effort & Inspection: normal respiratory effort, able to speak in complete sentences, no tracheal deviation and symmetric chest movement Auscultation: clear to auscultation bilaterally Cardio Rate: regular rate GI Inspection: Yes normal to inspection and No distended Palpation (GI): Soft to palpation, not firm, nontender and No hepatosplenomegaly present Auscultation: normal bowel sounds General: Yes no CVA tenderness Back/Spine/Pelvis Back: no CVA tenderness Skin General skin exam: elasticity normal, turgor normal and dry skin Neuro General: patient oriented x3 Psych Appearance: grossly normal Mental Status: mental status grossly normal Assessment & Plan Assessment & Plan (1) Screen for colon cancer: Code(s): Z12.11 - Encounter for screening for malignant neoplasm of colon (2) GERD (gastroesophageal reflux disease): Code(s): K21.9 - Gastro-esophageal reflux disease without esophagitis Category: Medical Qualifiers: Esophagitis presence: esophagitis presence not specified Qualified Code(s): K21.9 - Gastro-esophageal reflux disease without esophagitis Plan Patient reports constipation and abdominal bloating. No bowel movements for 3-4 days. Occasional blood in his stool after bowel movement. Patient admits to straining. Patient was encouraged to increase fluid intake and activity to promote better bowel motility. Patient will be started on Dulcolax daily. Message sent to surgical schedulers to book procedure for patient. Patient will return in 3 months to re-evaluate and to discuss going for colonoscopy and upper endoscopy. Continue current dose of omeprazole. Avoid dietary triggers and late night snacking. Staying upright for minimum 3 hours after meals discussed with patient. Patient will be sent for upper endoscopy occasional breakthrough symptoms and he has been on omeprazole for a long time. Patient is agreeable to this plan and verbalizes understanding of instructions. He was given the opportunity to ask questions and all questions answered. Thank you for allowing me to participate in his care Medications: New bisacodyl (Dulcolax (bisacodyl)) 10 mg (2 x 5 mg) PO BEDTIME 180 tabs 4RF hydrocortisone 2.5% (Proctosol HC) 1 appl NE BID-QID PRN 30 grams 2RF hemorrhoids K64.9 - Unspecified hemorrhoids Coding Level of Care Code New Pt Level 3 (26514) Diagnoses Screen for colon cancer Z12.11 Gastroesophageal reflux disease, unspecified whether esophagitis present K21.9 Esophagitis presence: esophagitis presence not specified Time Spent (min) 40 Comment 30 minutes spent with patient and additional 10 minutes spent reviewing his records
[2024-10-30 14:34] VITALS: BP 152/70; PULSE 68; O2SAT 99; BMI 26.7
--- OUTSIDE RECORDS SUMMARY | 2024-10-30 17:05 | XMS_ITS | Encounter Summary ---
Author Organization [employer] Address [address] [facility] [address] [place] [address] Care Team Providers Care Excelsior Machine Operator Name Role Phone Nieves Sagastume MD Primary Care Provider [phone] Reason for Visit * Reason Comments Med Refill Encounter Details Date Type Department Care Team ([facility] st Contact Info) Description 10/15/2024 Refill [facility] [address] [place] [address] Nieves Sagastume MD [address] [place], [place] [phone] Social History Tobacco Use Types Packs/Day Years Used Date Smoking Tobacco: Never Passive Smoke Exposure: Never Smokeless Tobacco: Never Alcohol Use Standard Drinks/Week Comments Defer 0 (1 standard drink = 0.6 oz pur e alcohol) Housing Stability Answer Date Recorded What is your housing situation today? I have az virgen 05/13/[address] you li ve. Do you have problems with any of the following? None of the above 05/13/2024 Food Insecurity Answer Date Recorded Within the past 12 months, y ou worried that your food would run out before you got money to buy more: Never True 05/13/2024 Within the past 12 months,th e food you bought just didn't last and you didn't have enough money to get more: Never True 02/2024 Transportation Answer Date Recorded In the past 12 months, has l ack of transportation kept you from medical appts, meetings, work or from getting things needed for daily living? No 05/13/2024 Utilities Answer Date Recorded In the past 12 months, has t he electric, gas, oil or water company threatened to shut off services in your home? No 05/13/2024 Depression Answer Date Recorded Patient Health Questionnaire-2 Score 0 05/13/2024 Internet Access Answer Date Recorded Internet Access Q1 No 05/13/2024 Internet Access Q2 I do not want or need it 02/2024 Sex and Gender Information Value Date Recorded Sex Assigned at Male 06/06/2022 10:14 AM EDT Legal Sex Male 10:14 AM EDT Gender Identity Male 06/06/2022 10:14 AM EDT Sexual Orientation Straight 06/06/2022 10 :14 AM EDT documented as of this encounter Plan of Treatment Upcoming Encounters Date Type Department Care Team ([facility] st Contact Info) Description 12/23/2024 3:00 PM EDT Office Visit [facility] [address] [place] [address] documented as of this encounter Goals Goal Patient Goal Type Associated Problems Recent Progress Patient-Stated? Author Blood Pressure < 140/90 Blood Pressure 142/80(2023 9:49 AM EST) No Bam Escalante, PharmD Patient will adhere to medication regimen General No Bam Escalante, PharmD documented as of this encounter Visit Diagnoses Not on filedocumented in this encounter Care Teams Excelsior Machine Operator Relationship Specialty Start Date End Date Nieves Sagastume MD [address] [place] [address] PCP - General Family Medicine 07/19/12 documented as of this encounter
--- OUTSIDE RECORDS SUMMARY | 2024-10-30 17:05 | XMS_ITS | Clinical Summary ---
Author Organization [employer] Address [address] [facility] 7t [place] [address] Care Team Providers Care Roof Promenade Tile Setter Name Role Phone Nieves Sagastume MD Primary Care Provider [phone] Allergies No known active allergies Medications folic acid (Folvite) 1 MG tablet Take 1 tablet by mouth at bed time. 05/19/20 20 Active ibuprofen 600 MG tablet Take 1 tablet by mouth every 8 (eight) hours. 02/13/20 20 Active thiamine (Vitamin B-1) 100 MG tablet Take 1 tablet by mouth at bed time. 09/02/19 17 Active albuterol 108 (90 Base) MCG/ACT inhaler take 2 puffs by Inhalation route every 4-6 hours as needed 18 g 2 11/23/19 23 Active Viagra 25 MG tablet TAKE 1 TABLET 1 HOUR BEFORE SEXUAL RELATIONS ONCE DAILY NEEDED. 15 tablet 12/28/19 23 Active carvedilol (Coreg) 12.5 MG tablet TAKE ONE TABLET IN THE MORNING AND EVENING 180 tablet 3 12/01/19 24 Active Mometasone Furoate (Asmanex HFA) 200 MCG/ACT aerosol Use BId 13 g 3 12/26/19 24 Active budesonide (Pulmicort) 90 MCG/ACT inhaler Inhale 1 puff in the morning and at bedtime. Rinse mouth with water after use to reduce aftertaste and incidence of candidiasis. Do not swallow. 1 each 01/12/20 24 025 Active atorvastatin (Lipitor) 40 MG tablet TAKE ONE TABLET EVERY NIGHT AT BEDTIME 90 tablet 2 03/28/20 24 Active levothyroxine (Synthroid, Levoxyl) 125 MCG tabletIndicatio ns:Hypothyroidi sm, unspecified type TAKE ONE TABLET EVERY MORNING 90 tablet 1 08/16/19 25 Active omeprazole (PriLOSEC) [address] capsule TAKE ONE CAPSULE EVERY MORNING BEFORE BREAKFAST 90 capsule 2 09/17/19 25 Active Aspirin Low Dose 81 MG chewable tablet CHEW ONE TABLET EVERY MORNING 90 tablet 2 10/18/19 25 Active Multiple Vitamin (Multivitamin) tablet TAKE ONE TABLET EVERY MORNING 90 tablet 2 10/18/19 25 Active tamsulosin (Flomax) 0.4 MG 24 hr capsule TAKE ONE CAPSULE EVERY NIGHT AT BEDTIME 90 capsule 2 10/18/19 25 Active fluticasone furoate (Arnuity Ellipta) 100 MCG/ACT inhaler Inhale 1 puff Once per day. Rinse mouth with water after use to reduce aftertaste and incidence of candidiasis. Do not swallow. 1 each 10/25/19 25 026 Active Aspirin Low Dose 81 MG chewable tablet CHEW ONE TABLET EVERY MORNING 90 tablet 2 12/01/19 24 025 Discontinued tamsulosin (Flomax) 0.4 MG 24 hr capsule TAKE ONE CAPSULE EVERY NIGHT AT BEDTIME 90 capsule 2 12/01/19 24 025 Discontinued Multiple Vitamin (Multivitamin) tablet TAKE ONE TABLET EVERY MORNING 90 tablet 2 12/01/19 24 025 Discontinued Active Problems Problem Noted Date Diagnosed Date Benign prostatic hyperplasia with lower urinary tract symptoms 05/13/2024 Arthritis 05/13/2024 STEMI (ST elevation myocardial infarction) 05/13 Conductive hearing loss, bilateral 05/13/2024 Hypothyroidism 01/13/2017 Hypercholesterolemia 11/29/2012 Benign hypertension 11/12/2012 Encounters Date Type Department Care Team Description 10/24/2024 Telephone [facility] [address] [place] [address] Nieves Sagastume MD 10/23/2024 Telephone [facility] [address] [place] [address] Nieves Sagastume MD 10/18/2024 Population Health Risk Score [facility] Department [address] [phone] Provider, Population Health Generic 10/15/2024 Refill [facility] [address] [facility] [address] Nieves Sagastume MD 09/12/2024 Refill [facility] [address] [place], [place] [phone] Nieves Sagastume MD 08/15/2024 Refill [facility] [address] [place], [place] [phone] Nieves Sagastume MD Hypothyroidism, unspecified type 08/05/2024 Telephone [facility] [address] [place] [address] Nieves Sagastume MD from Last 3 Months Immunizations Name Administration Dates Next Due Influenza injectable quadriv alent IIV4 with preservative 05/04/2017 Influenza, IIV3, injectable 05/27/2014 Pneumococcal Conjugate PCV 20 11/22/2022 Pneumococcal Polysaccharide PPSV23 08/03/2014 Td (adult), 5 Lf tetanus tox oid, preservative free, adsorbed 01/13/2017 Tdap 05/13/2024 Zoster, Recombinant 11/22/2022 Social History Tobacco Use Types Packs/Day Years Used Date Smoking Tobacco: Never Passive Smoke Exposure: Never Smokeless Tobacco: Never Tobacco Cessation:Counseling Given: Not Answered Alcohol Use Standard Drinks/Week Comments Defer 0 [...] Orientation Straight 06/06/2022 10 :14 AM EDT Last Filed Vital Signs Vital Sign Reading Time Taken Comments Blood Pressure 142/80 07/08/2024 9:49 AM EST Pulse 81 07/08/2024 9:49 AM EST Temperature 36.3 ??C (97.3 ??F) 07/08/2024 9:49 AM ES T Respiratory Rate 18 07/08/2024 9:49 AM EST Oxygen Saturation 99% 05/13/2024 10:40 AM EDT Inhaled Oxygen Concentration - - Weight 75.8 kg (167 lb) 07/08/2024 9:49 AM EST Height 172.7 cm (5' 8 ) 07/08/2024 9:49 AM EST Body Mass Index 25.39 07/08/2024 9:49 AM EST Plan of Treatment Upcoming Encounters Date Type Department Care Team (Late st Contact Info) Description 12/23/2024 3:00 PM EDT Office Visit [facility] [address] [place] [id number] Health Maintenance Due Date Last Done Comments CT Colonography 1958 Dental Prophylaxis 1958 Dental X-Ray: Bitewings 1958 Dental X-Ray: Full Mouth 1958 FIT DNA/Cologuard 1958 FIT 1958 FOBT 1958 Sigmoidoscopy 1960 Hepatitis C Screening 1976 RSV Patients and Patients Aged 60 years or older (1 - Risk 60-74 years 1-dose series) 2018 Colonoscopy 11/08/2021 11/08/2016 Colorectal Cancer Screening 11/08/2021 Zoster Vaccines (2 of 2) 01/17/2023 11/22/2022 Dental Oral Exam 04/15/2023 10/12/2022 Influenza Vaccine (#1) 2025 7, 05/27/2014 Postponed from 04/07/2024 (Patient Refused) Alcohol/Substance Use Screening 05/13/2025 05/13/2024 Depression Screening 05/13/2025 05/13/2024, 05/13/2024 SDOH Screening 05/13/2025 05/13/2024 Tobacco Screening 05/13/2025 05/13/2024 COVID-19 Vaccine (1 - 2023-2 5 season) 2025 Postponed from 04/07 (Patient Refused) Lipid Panel 05/14/2029 05/14/2024, 02/22/2022 DTaP/Tdap/Td Vaccines (2 - T d or Tdap) 05/13/2034 05/13/2024, 01/13/2017 Pneumococcal Vaccine: 50+ Years Completed 11/22/2022, 08/03/2014 HIB Vaccines Aged Out No longer eligi ble based on patient's age to complete this topic HPV Vaccines Aged Out No longer eligi ble based on patient's age to complete this topic Hepatitis A Vaccines Aged Out No long er eligible based on patient's age to complete this topic Hepatitis B Vaccines Aged Out No long er eligible based on patient's age to complete this topic IPV Vaccines Aged Out No longer eligi ble based on patient's age to complete this topic Meningococcal Vaccine Aged Out No bernard natasha eligible based on patient's age to complete this topic RSV under 20 months Aged Out No longe r eligible based on patient's age to complete this topic Rotavirus Vaccines Aged Out No longer eligible based on patient's age to complete this topic Goals Goal Patient Goal Type Associated Problems Recent Progress Patient-Stated? Author Blood Pressure < 140/90 Blood Pressure 142/80(2023 9:49 AM EST) No Bam Escalante, PharmD Patient will adhere to medication regimen General No Bam Escalante, PharmD Procedures Procedure Name Priority Date/Time Associated Diagnosis Comments LIPID PANEL, STANDARD Routine 05/14/2024 9:14 AM EDT Benign hypertension PERIODIC ORAL EVALUATION - ESTABLISHED PATIENT Routine 10/12/2022 2:00 PM EST HM COLONOSCOPY Routine 11/08/2016 from Last 3 Months or Most Recently Relevant to Health Maintenance Results * (ABNORMAL) Lipid Panel, Standard (05/14/2024 9:14 AM EDT) Triglycerides 245(H) <150 mg/dL [facility] Comment:Desirable Triglyceri de: less than 150 mg/dLBorderline High Triglyceride 150-199 mg/dLHigh Triglyceride: 200-499 mg/dLVery High Triglyceride: greater than or equal to 5OO mg/dL Cholesterol 156 <200 mg/dL [facility] Comment:Desirable Cholestero l: less than 200 mg/dLBorderline High Cholesterol: 200-239 mg/dLHigh Cholesterol: greater than 239 mg/dL LDL Cholesterol Calculated 69 <100 mg/dL [facility] Comment:Desirable LDL: less than 100 mg/dLNear Optimal/Above Optimal LDL: 110- 129 mg/dLBorderline High LDL: 130-159 mg/dLHigh LDL: 160-189 mg/dLVery High LDL: greater than or equal to 190 mg/dL HDL Cholesterol 38(L) >40 mg/dL [facility] Comment:Desirable HDL: great er than 40 mg/dL Note: This HDL assay may give artificially low results in patients with liver disease. Blood Venous blood specimen / Unknown 05/14/2024 9:14 AM EDT 05/14/2024 2:00 PM EDT Nieves Sagastume MD LAB BLOOD ORDERABLES Final Resul t [facility] [address] [place] [phone] * Colonoscopy (11/08/2016) Colonoscopy Normal Normal Mack Provider HEALTH MAINTENANCE Final Result from Last 3 Months or Most Recently Relevant to Health Maintenance Insurance MEDICARE [facility] STANDARD DENTAL-[facility] MEDICAID STAND ADULT Care Teams Roof Promenade Tile Setter Relationship Specialty Start Date End Date Nieves Sagastume MD [address] [place] [address] [place] [address] PCP - General Family Medicine 07/19/12
--- OUTSIDE RECORDS SUMMARY | 2024-10-30 17:05 | XMS_ITS | Encounter Summary ---
Author Organization [employer] Address [address] [facility] [address] [place] [address] Care Team Providers Care End Maker Name Role Phone Nieves Sagastume MD Primary Care Provider [phone] Encounter Details Date Type Department Care Team (Late st Contact Info) Description 10/23/2024 Telephone [facility] [address] [place] [address] Nieves Sagastume MD [address] [place], [place] [phone] Social History Tobacco Use Types Packs/Day Years [...] AM EDT documented as of this encounter Miscellaneous Notes * Telephone Encounter - Elin Rodriguez - 10/23/2024 11:04 AM EDT Placed outbound call to patient for Annual Wellness Visit outreach. Patient's name and were confirmed. Patient educated on the purpose of Medicare Annual Wellness Visits and is agreeable to an appointment with provider. Insurance verified prior to scheduling. Patient scheduled for AWV appointment on 12/23/24 at 3 PM with Blue Team Nurse. Patient advised to bring to appointment a photo id and insurance card. Also advised to bring in all medications, including [id number], vitamins, or supplements and any copies of Advance Directives and Health Care Proxy forms. Patient provided with education on contacting the Health Center with any questions or concerns prior to the scheduled appointment. Patient provided with after-hours line for [facility], , which offer night time triage service and option to transfer to international trade analyst provider if needed. documented in this encounter Plan of Treatment Upcoming Encounters Date Type Department Care Team (Late st Contact Info) Description 12/23/2024 3:00 PM EDT Office Visit [facility] [address] [place] [address] documented as of this encounter Goals Goal Patient Goal Type Associated Problems Recent Progress Patient-Stated? Author Blood Pressure < 140/90 Blood Pressure 142/80(2023 9:49 AM EST) No Bam Escalante, PharmD Patient will adhere to medication regimen General No Bam Escalante, PharmD documented as of this encounter Visit Diagnoses Not on filedocumented in this encounter Care Teams End Maker Relationship Specialty Start Date End Date Nieves Sagastume MD [address] [place] [address] PCP - General Family Medicine 07/19/12 documented as of this encounter
--- OUTSIDE RECORDS SUMMARY | 2024-10-30 17:05 | XMS_ITS | Encounter Summary ---
Author Organization [employer] Address [address] [facility] [address] [place] [address] Care Team Providers Care Boat Officer Name Role Phone Nieves Sagastume MD Primary Care Provider [phone] Encounter Details Date Type Department Care Team ([facility] st Contact Info) Description 10/18/2024 Population Health Risk Score [facility] ([facility]) Department [address] [facility] [address] [place] [phone] Provider, Population Health Generic Social History Tobacco Use Types Packs/Day Years [...] Description 12/23/2024 3:00 PM EDT Office Visit [facility] [address] [place] [address] documented as of this encounter Goals Goal Patient Goal Type Associated Problems Recent Progress Patient-Stated? Author Blood Pressure < 140/90 Blood Pressure 142/80(2023 9:49 AM EST) No Bam Escalante, PharmD Patient will adhere to medication regimen General No Bam Escalante, PharmD documented as of this encounter Visit Diagnoses Not on filedocumented in this encounter Care Teams Boat Officer Relationship Specialty Start Date End Date Nieves Sagastume MD [address] [place] [address] PCP - General Family Medicine 07/19/12 documented as of this encounter
--- OUTSIDE RECORDS SUMMARY | 2024-10-30 17:06 | XMS_ITS | Encounter Summary ---
Author Organization [employer] Address [address] [facility] [address] [place] [address] Care Team Providers Care Component Inspector Name Role Phone Nieves Sagastume MD Primary Care Provider [phone] Encounter Details Date Type Department Care Team ([facility] st Contact Info) Description 10/24/2024 Telephone [facility] [address] [place], [place] [phone] Nieves Sagastume MD [address] [place], [place] [phone] Social History Tobacco Use Types Packs/Day Years Used Date Smoking Tobacco: Never Passive Smoke Exposure: Never Smokeless Tobacco: Never Alcohol Use Standard Drinks/Week Comments Defer 0 (1 standard drink = 0.6 oz pur e alcohol) Housing Stability Answer Date Recorded What is your housing situation today? I have az vrigen 05/13/[address] you li [...] encounter Miscellaneous Notes * Telephone Encounter - Violette Lowe RN - 10/24/2024 9:01 AM EDT Arnuity covered by pt insurance. Alternative ordered by PCP request. documented in this encounter Plan of Treatment Upcoming Encounters Date Type Department Care Team (Late st Contact Info) Description 12/23/2024 3:00 PM EDT Office Visit [facility] [address] [place] [address] documented as of this encounter Goals Goal Patient Goal Type Associated Problems Recent Progress Patient-Stated? Author Blood Pressure < 140/90 Blood Pressure 142/80(2023 9:49 AM EST) No Bam Escalante, PharmD Patient will adhere to medication regimen General No Bam Escalante, PharmD documented as of this encounter Visit Diagnoses Not on filedocumented in this encounter Care Teams Component Inspector Relationship Specialty Start Date End Date Nieves Sagastume MD [address] [place] [address] PCP - General Family Medicine 07/19/12 documented as of this encounter
== END 2024-10-30 15:11 | disposition home or self-care (01) ==
LOC: HO.HGI 14:14
PROVIDERS: PCP Student in an Organized Health Care Education/Training Program; Visit Provider Nurse Practitioner Family
DX: K21.9 Gastro-esophageal reflux disease without esophagitis (principal); Z12.11 Encounter for screening for malignant neoplasm of colon
CPT/HCPCS: 99203

== ENCOUNTER → 2024-10-30 14:14 | Outpatient (BNVA) | payer MEDICARE, MEDICAID, SELFPAY | PROVIDERS: PCP Student in an Organized Health Care Education/Training Program; Visit Provider Nurse Practitioner Family | DX: Z01.818 Encounter for other preprocedural examination (principal); K59.00 Constipation, unspecified; K21.9 Gastro-esophageal reflux disease without esophagitis; K64.9 Unspecified hemorrhoids | CPT/HCPCS: 99202 ==

== ENCOUNTER 2024-11-21 08:56 | Outpatient (REF) | payer MEDICARE, MEDICAID, SELFPAY ==
--- OUTSIDE RECORDS SUMMARY | 2024-11-21 09:44 | XMS_ITS | Clinical Summary ---
Author Organization [employer] Address [address] [facility] [address] [place] [address] Care Team Providers Care Timber Framer Helper Name Role Phone Nieves Sagastume MD Primary Care Provider [phone] Allergies No known active allergies Medications folic acid (Folvite) 1 MG tablet Take 1 tablet by mouth at bed time. 0 Active ibuprofen 600 MG tablet Take 1 tablet by mouth every 8 (eight) hours. 0 Active thiamine (Vitamin B-1) 100 MG tablet Take 1 tablet by mouth at bed time. 7 Active albuterol 108 (90 Base) MCG/ACT inhaler take 2 puffs by Inhalation route every 4-6 hours as needed 18 g 2 3 Active Viagra 25 MG tablet TAKE 1 TABLET 1 HOUR BEFORE SEXUAL RELATIONS ONCE DAILY NEEDED. 15 tablet 3 Active carvedilol (Coreg) 12.5 MG tablet TAKE ONE TABLET IN THE MORNING AND EVENING 180 tablet 3 4 Active Mometasone Furoate (Asmanex HFA) 200 MCG/ACT aerosol Use BId 13 g 3 4 Active budesonide (Pulmicort) 90 MCG/ACT inhaler Inhale 1 puff in the morning and at bedtime. Rinse mouth with water after use to reduce aftertaste and incidence of candidiasis. Do not swallow. 1 each 11 4 01/12/20 25 Active atorvastatin (Lipitor) 40 MG tablet TAKE ONE TABLET EVERY NIGHT AT BEDTIME 90 tablet 2 4 Active levothyroxine (Synthroid, Levoxyl) 125 MCG tabletIndication s:Hypothyroidism , unspecified type TAKE ONE TABLET EVERY MORNING 90 tablet 1 5 Active omeprazole (PriLOSEC) [address] capsule TAKE ONE CAPSULE EVERY MORNING BEFORE BREAKFAST 90 capsule 2 5 Active Aspirin Low Dose 81 MG chewable tablet CHEW ONE TABLET EVERY MORNING 90 tablet 2 5 Active Multiple Vitamin (Multivitamin) tablet TAKE ONE TABLET EVERY MORNING 90 tablet 2 5 Active tamsulosin (Flomax) 0.4 MG 24 hr capsule TAKE ONE CAPSULE EVERY NIGHT AT BEDTIME 90 capsule 2 5 Active fluticasone furoate (Arnuity Ellipta) 100 MCG/ACT inhaler Inhale 1 puff Once per day. Rinse mouth with water after use to reduce aftertaste and incidence of candidiasis. Do not swallow. 1 each 5 10/25/19 26 Active lisinopril 10 MG tablet Take 1 tablet (10 mg) by mouth Once per day. 30 tablet 11 5 11/13/19 26 Active bisacodyl (Dulcolax) 5 MG EC tablet Take 1 tablet (5 mg) by mouth if needed each day for constipation. Do not crush, chew, or split. 30 tablet 5 12/13/19 25 Active Active Problems Problem Noted Date Diagnosed Date Benign prostatic hyperplasia with lower urinary tract symptoms 05/13/2024 Arthritis 05/13/2024 STEMI (ST elevation myocardial infarction) 05/13 Conductive hearing loss, bilateral 05/13/2024 Hypothyroidism 01/13/2017 Hypercholesterolemia 11/29/2012 Benign hypertension 11/12/2012 Encounters Date Type Department Care Team Description 11/12/2024 10:45 AM EDT Office Visit [facility] [address] [place] [address] Nieves Sagastume MD Benign hypertension (Primary Dx); Hypercholesterolemi a; Hypothyroidism, unspecified type 11/12/2024 Travel 10/24/2024 Telephone [facility] [address] [facility] [place] [address] Nieves Sagastume MD 10/23/2024 Telephone [facility] [address] [place], [place] [phone] Nieves Sagastume MD 10/18/2024 Population Health Risk Score [facility] Department [address] [place] [phone] Provider, Population Health Generic 10/15/2024 Refill [facility] [address] [place] [address] Nieves Sagastume MD 09/12/2024 Refill [facility] [address] [place] [address] Nieves Sagastume MD from Last 3 Months [...] Sign Reading Time Taken Comments Blood Pressure 151/82 11/12/2024 10:25 AM EDT Pulse 64 11/12/2024 10:25 AM EDT Temperature 36.7 ??C (98 ??F) 11/12/2024 10:25 AM EDT Respiratory Rate 18 11/12/2024 10:25 AM EDT Oxygen Saturation 99% 05/13/2024 10:40 AM EDT Inhaled Oxygen Concentration - - Weight 75.8 kg (167 lb) 11/12/2024 10:25 AM EDT Height 172.7 cm (5' 8 ) 11/12/2024 10:25 AM EDT Body Mass Index 25.39 11/12/2024 10:25 AM EDT Plan of Treatment Upcoming Encounters Date Type Department Care Team (Late st Contact Info) Description 12/10/2024 1:30 PM EDT Clinical Support [facility] [address] [place] [address] 12/23/2024 3:00 PM EDT Office Visit [facility] [address] [place] [address] Health Maintenance Due Date Last Done Comments [...] 05/13/2025 05/13/2024, 05/13/2024 SDOH Screening 05/13/2025 05/13/2024 COVID-19 Vaccine (1 - 2023-2 5 season) 2025 Postponed from 04/07 (Patient Refused) Tobacco Screening 11/12/2025 11/12/2024 Lipid Panel 05/14/2029 05/14/2024, 02/22/2022 DTaP/Tdap/Td Vaccines [...] Author Blood Pressure < 140/90 Blood Pressure 151/82(2024 10:25 AM EDT) No Bam Escalante, PharmD Patient will adhere [...] 9:14 AM EDT) Triglycerides 245(H) <150 mg/dL [facility] Comment:Desirable Triglyceri de: less than 150 mg/dLBorderline High Triglyceride 150-199 mg/dLHigh Triglyceride: 200-499 mg/dLVery High Triglyceride: greater than or equal to 5OO mg/dL Cholesterol 156 <200 mg/dL [facility] Comment:Desirable Cholestero l: less than 200 mg/dLBorderline High Cholesterol: 200-239 mg/dLHigh Cholesterol: greater than 239 mg/dL LDL Cholesterol Calculated 69 <100 mg/dL [facility] Comment:Desirable LDL: less than 100 mg/dLNear Optimal/Above Optimal LDL: 110- 129 mg/dLBorderline High LDL: 130-159 mg/dLHigh LDL: 160-189 mg/dLVery High LDL: greater than or equal to 190 mg/dL HDL Cholesterol 38(L) >40 mg/dL [facility] Comment:Desirable HDL: great er than 40 mg/dL Note: This HDL assay may give artificially low results in patients with liver disease. Blood Venous blood specimen / Unknown 05/14/2024 9:14 AM EDT 05/14/2024 2:00 PM EDT Nieves Sagastume MD LAB BLOOD ORDERABLES Final Resul t [facility] [address] [place] [phone] * Colonoscopy (11/08/2016) Colonoscopy Normal Normal Mack Brooks MD HEALTH MAINTENANCE Final Result from Last 3 Months or Most Recently Relevant to Health Maintenance Insurance MEDICARE [facility] STANDARD DENTAL-[facility] MEDICAID STAND ADULT Care Teams Timber Framer Helper Relationship Specialty Start Date End Date Nieves Sagastume MD [address] [place] [phone] PCP - General Family Medicine 07/19/12
[2024-11-21 14:48] LABS: Alanine Aminotransferase 17 U/L (0-40); Anion Gap 10 (12-20); Aspartate Amino Transferase 24 U/L (5-37); Bilirubin Direct 0.2 mg/dL (0.0-0.5); Bilirubin Total 0.5 mg/dL (0.0-1.0); Blood Urea Nitrogen 11 mg/dL (9-16); Carbon Dioxide 29 mmol/L (22-29); Chloride 105 mmol/L (96-108); Cholesterol 147 mg/dL (<200); Estimated Glomerular Filt Rate > 60; Glucose Random 125 mg/dL (60-115); HDL Cholesterol 40 mg/dL (>40); LDL Cholesterol Calculated 75 mg/dL (<100); Potassium 4.2 mmol/L (3.3-5.1); Sodium 140 mmol/L (135-145); Total Protein 7.3 g/dL (6.5-8.0); Triglycerides 163 mg/dL (<150)
[2024-11-21 14:53] LABS: Alkaline Phosphatase 80 U/L (39-117)
[2024-11-21 15:38] LABS: Free T4 (Free Thyroxine) 0.98 ng/dL (0.71-1.85)
== END 2024-11-21 08:57 | disposition home or self-care (01) ==
LOC: HO.CHCLDS 08:56
PROVIDERS: Visit Provider Student in an Organized Health Care Education/Training Program
DX: I10 Essential (primary) hypertension (principal); E78.00 Pure hypercholesterolemia, unspecified; E03.9 Hypothyroidism, unspecified
CPT/HCPCS: 36415; 80048; 80061; 80076; 84439; 84443

== ENCOUNTER 2025-01-01 10:48 | Outpatient (REF) | payer MEDICARE, MEDICAID, SELFPAY ==
--- NOTE | 2025-01-01 11:47 | MHC.AU.HA3 ---
Hearing Instrument Follow-Up- Binaural Date of Visit: 01/01/25 Left Ear: Make, Model, Color, Serial Number: Oticon Nico 2 Pro YEH SN: [id number] Color: Steel Gar[address] Man Repair Warranty: 08/12/[address] Man Loss and Damage Warranty: [facility] Service Plan: Battery Size: 312 Airline Captain/Slim Tube: 3 Earmold/Dome/CShell/SlimTip: Oticon Micro Skeleton Mold SN: [id number] Type of Wax Guard: ProWax on mold; miniFit on railroad baggage porter Dispensed By: [facility] Date of Fittin Follow-Up Summary: Left SAHU/EM dropped off reporting . miniFit wax guard on railroad baggage porter occluded and wax build up noted in railroad baggage porter behind wax guard. Able to successfully clean out. Cleaned SAHU/EM. Replaced both wax guards. Vacuumed microphones. Ran through dehumidifier. Airline Captain wire also twisted. Used head to reshape. Listening check demonstrated SAHU amplifying clearly. To front office to call for clam picker. Recommendations: Hearing instrument follow-up or maintenance as needed. Please contact our clinic with any questions or concerns. Diagnosis Code(s): Primary Diagnosis: H90.3 Bilateral Sensorineural Hearing Loss Signature: Provider: Mariola Douglas, [facility]
--- OUTSIDE RECORDS SUMMARY | 2025-01-01 11:53 | XMS_ITS | Clinical Summary ---
Author Organization [employer] Address [address] [facility] [address] [place] [address] Care Team Providers Care Contract Negotiator Name Role Phone Nieves Sagastume MD Primary Care Provider [phone] Elana Poon Unavailable Allergies No known active allergies Medications folic [...] split. 30 tablet 5 12/13/19 25 Active Problems Problem Noted Date Diagnosed Date Benign prostatic hyperplasia with lower urinary tract symptoms 05/13/2024 Arthritis 05/13/2024 STEMI (ST elevation myocardial infarction) 05/13 Conductive hearing loss, bilateral 05/13/2024 Hypothyroidism 01/13/2017 Hypercholesterolemia 11/29/2012 Benign hypertension 11/12/2012 Encounters Date Type Department Care Team Description 12/24/2024 Telephone [facility] [address] [place] [address] Nieves Sagastume MD No Show 12/20/2024 Telephone [facility] [address] [place], [place] [phone] Nieves Sagastume MD Error (VOID this visit) 12/10/2024 1:30 PM EDT Clinical Support [facility] [address] [place] [address] Sally Cortez RN Benign hypertension 12/10/2024 Travel 11/21/2024 Orders Only [facility] [address] [place] [address] Nieves Sagastume MD 11/12/2024 10:45 AM EDT Office Visit [facility] [address] [place] [address] Nieves Sagastume MD Benign hypertension (Primary Dx); Hypercholesterolemi a; Hypothyroidism, unspecified type 11/12/2024 Travel 10/24/2024 Telephone [facility] [address] [place] [address] Nieves Sagastume MD 10/23/2024 Telephone [facility] [address] [place] [address] Nieves Sagastume MD 10/18/2024 Population Health Risk Score [facility] ([facility]) Department [address] [phone] Provider, Population Health Generic 10/15/2024 Refill [facility] [address] [place] [address] Nieves Sagastume MD from Last 3 Months Immunizations Immunization Administration Dates Next Due Influenza injectable quadriv [...] Sign Reading Time Taken Comments Blood Pressure 168/80 12/10/2024 1:46 PM EDT Pulse 64 11/12/2024 10:25 AM EDT [...] 11/12/2024 10:25 AM EDT Plan of Treatment Health Maintenance Due Date Last Done Comments [...] Refused) Tobacco Screening 11/12/2025 11/12/2024 Lipid Panel 11/21/2029 11/21/2024, 05/14/2024, 02/22/2022 DTaP/Tdap/Td Vaccines (2 - T [...] patient's age to complete this topic Meningococcal B Vaccine Aged Out No l onger eligible based on patient's age to complete [...] Author Blood Pressure < 140/90 Blood Pressure 168/80(2024 1:46 PM EDT) No Bam Escalante PharmD Patient will adhere to medication regimen General No Bam Escalante PharmD Procedures Procedure Name Priority Date/Time Associated Diagnosis Comments T4, FREE Routine 11/21/2024 8:57 AM EDT TSH W/REFLEX TO FT4 Routine 11/21/2024 8 :57 AM EDT Hypothyroidism, unspecified type HEPATIC FUNCTION PANEL Routine 11/21/2024 8:57 AM EDT Benign hypertension Hypercholesterolemia BASIC METABOLIC PANEL Routine 11/21/2024 8:57 AM EDT Benign hypertension Hypercholesterolemia LIPID PANEL, STANDARD Routine 11/21/2024 8:57 AM EDT Benign hypertension Hypercholesterolemia PERIODIC ORAL EVALUATION - ESTABLISHED PATIENT Routine 10/12/2022 2:00 PM EST [facility] COLONOSCOPY Routine 11/08/2016 from Last 3 Months or Most Recently Relevant to Health Maintenance Results * (ABNORMAL) TSH with Reflex to Free T4 (11/21/2024 8:57 AM EDT) TSH reflex Free T4 0.20(L) 0.32 - 4.0 uIU/mL [facility] Blood Venous blood specimen / Unknown 11/21/2024 8:57 AM EDT 11/21/2024 2:13 PM EDT us Nieves Sagastume MD LAB BLOOD ORDERABLES Final Resul t [facility] [address] [place] [phone] * T4, Free (11/21/2024 8:57 AM EDT) Free T4 (Free Thyroxine) 0.98 0.71 - 1.85 ng/dL [facility] 11/21/2024 8:57 AM EDT 11/21/2024 2:13 PM EDT Nieves Sagastume MD LAB BLOOD ORDERABLES Final Resul t Performing Organization Address [facility] Co de Phone Number [facility] [address] [place] [phone] * Hepatic Function Panel (11/21/2024 8:57 AM EDT) Bilirubin, Total 0.5 0.0 - 1.0 mg/dL [facility] Bilirubin, Direct 0.2 0.0 - 0.5 mg/dL [facility] Aspartate Amino Transferase 24 5 - 37 U/L [facility] Alanine Aminotransferase 17 0 - 40 U/L [facility] Total Protein 7.3 6.5 - 8.0 g/dL [facility] Albumin Level 4.0 3.5 - 5.0 g/dL [facility] Alkaline Phosphatase 80 39 - 117 U/L [facility] Blood Venous blood specimen / Unknown 11/21/2024 8:57 AM EDT 11/21/2024 2:13 PM EDT Nieves Sagastume MD LAB BLOOD ORDERABLES Final Resul t Performing Organization Address [facility] Phone Number [facility] [address] [place] [phone] * (ABNORMAL) Lipid Panel, Standard (11/21/2024 8:57 AM EDT) Triglycerides 163(H) <150 mg/dL [facility] Comment:Desirable Triglyceri de: less than 150 mg/dLBorderline High Triglyceride 150-199 mg/dLHigh Triglyceride: 200-499 mg/dLVery High Triglyceride: greater than or equal to 5OO mg/dL Cholesterol 147 <200 mg/dL [facility] Comment:Desirable Cholestero l: less than 200 mg/dLBorderline High Cholesterol: 200-239 mg/dLHigh Cholesterol: greater than 239 mg/dL LDL Cholesterol Calculated 75 <100 mg/dL [facility] Comment:Desirable LDL: less than 100 mg/dLNear Optimal/Above Optimal LDL: 110- 129 mg/dLBorderline High LDL: 130-159 mg/dLHigh LDL: 160-189 mg/dLVery High LDL: greater than or equal to 190 mg/dL HDL Cholesterol 40(L) >40 mg/dL [facility] Comment:Desirable HDL: great er than 40 mg/dL Note: This HDL assay may give artificially low results in patients with liver disease. Blood Venous blood specimen / Unknown 11/21/2024 8:57 AM EDT 11/21/2024 2:13 PM EDT Nieves Sagastume MD LAB BLOOD ORDERABLES Final Resul t [facility] [address] [place] [phone] * (ABNORMAL) Basic Metabolic Panel (11/21/2024 8:57 AM EDT) Sodium 140 135 - 145 mmol/L [facility] Potassium 4.2 3.3 - 5.1 mmol/L [facility] Chloride 105 96 - 108 mmol/L [facility] Carbon Dioxide 29 22 - 29 mmol/L [facility] Anion Gap 10(L) 12 - 20 [facility] Urea Nitrogen (BUN) 11 9 - 16 mg/dL [facility] Creatinine, Serum 0.80 0.5 - 1.4 mg/dL [facility] Estimated Glomerular Filt Rate >60 [facility] Comment:Chronic Kidney Disea se: Estimated GFR < 60 mL/min/[id number] Kidney Disease: Estimated GFR < 15 mL/min/1.73m2 Glucose 125(H) 60 - 115 mg/dL [facility] Calcium 9.0 8.4 - 10.2 mg/dL [facility] Blood Venous blood specimen / Unknown 11/21/2024 8:57 AM EDT 11/21/2024 2:13 PM EDT Nieves Sagastume MD LAB BLOOD ORDERABLES Final Resul t [facility] [address] [place] [phone] [phone] * Colonoscopy (11/08/2016) [facility] Signature Colonoscopy Normal Normal Historical Provider HEALTH MAINTENANCE Final Result from Last 3 Months or Most Recently Relevant to [place] [id number] [facility] STANDARD DENTAL-[facility] MEDICAID STAND ADULT Care Teams Contract Negotiator Relationship Specialty Start Date End Date Nieves Sagastume MD [address] [place] [phone] PCP - General Family Medicine 07/19/12 Elana Poon [address] [place] [address] [address] [place] [address] Gastroenterology 12/17/24
== END 2025-01-01 10:49 | disposition home or self-care (01) ==
LOC: HO.HAP 10:48
PROVIDERS: Visit Provider Student in an Organized Health Care Education/Training Program
DX: Z46.1 Encounter for fitting and adjustment of hearing aid (principal); H90.3 Sensorineural hearing loss, bilateral
CPT/HCPCS: 92592; 99499

== ENCOUNTER 2025-02-04 09:44 | Outpatient (AMB) | payer MEDICARE, MEDICAID, SELFPAY ==
--- NOTE | 2025-02-04 09:49 | A.OFFVIS_ITS ---
Vital Signs 02/04/25 09:50 Height 5 ft 7 in Weight 170 lb BMI 26.6 BP 152/82 H Blood Pressure Location Rt brachial Position Sitting Pulse 70 Pulse Source Pulse Oximeter Pulse Oximetry (%) 100 Oxygen Delivery Method Room Air Intake Visit Reasons: discuss colo Intake Note: Est pt for mgmt of GERD + CIC. Discuss colo. Chief Complaint; C.O. constipation persistence, and concerns regarding effectiveness of the hydrocortisone. Pt states PPI is OK. Help Desk Representative Required: Yes Help Desk Representative Services: Help Desk Representative Offered & Declined Accompanied by: Self / Same As Patient Allergies No Known Allergies (No Known Allergies*) Allergy (Verified 02/04/25 09:50) HPI HPI discuss colo: Details: LAST VISIT: Screen for colon cancer GERD (gastroesophageal reflux disease) Plan Patient reports constipation and abdominal bloating. No bowel movements for 3-4 days. Occasional blood in his stool after bowel movement. Patient admits to straining. Patient was encouraged to increase fluid intake and activity to promote better bowel motility. Patient will be started on Dulcolax daily. Message sent to surgical schedulers to book procedure for patient. Patient will return in 3 months to re-evaluate and to discuss going for colonoscopy and upper endoscopy. Continue current dose of omeprazole. Avoid dietary triggers and late night snacking. Staying upright for minimum 3 hours after meals discussed with patient. Patient will be sent for upper endoscopy occasional breakthrough symptoms and he has been on omeprazole for a long time. Patient is agreeable to this plan and verbalizes understanding of instructions. He was given the opportunity to ask questions and all questions answered. ? Thank you for allowing me to participate in his care New bisacodyl (Dulcolax (bisacodyl)) 10 mg (2 x 5 mg) PO BEDTIME 180 tabs 4RF hydrocortisone 2.5% (Proctosol HC) 1 appl WI BID-QID PRN 30 grams 2RF hemorrhoids K64.9 TODAY'S VISIT Patient is here today for follow-up. Patient reports that he continues to have constipation. Patient is taking Dulcolax every day and still has to push in order to have a bowel movement. Patient reports lower abdominal pain across her whole abdomen. Patient reports that the pain is there almost the whole time. Occasional blood in his stools specially after bowel movements when pushing. Proctosol is not helping as he is constipated. Denies diarrhea. Denies melena. Denies unintentional weight loss. Reports that omeprazole is helping with acid reflux. [facility] Medical History Dysphagia Tubular adenoma of colon Coronary artery disease Polysubstance abuse GERD (gastroesophageal reflux disease) Hyperlipidemia Hypothyroid Surgical History History of surgery Social History Substance Use Type: Crack/Cocaine Review of Systems Const Denies weight gain and Denies weight loss ENT Reports no additional complaints, Denies dysphagia and Denies odynophagia Card Reports no additional complaints Resp Reports no additional complaints GI Denies abdominal pain, Denies belching, Denies melena, Reports bloating, Reports hematochezia (Occasional), Denies change in bowel habits, Reports constipation, Denies dysphagia, Denies excessive flatus, Denies dyspepsia, Denies heartburn, Denies diarrhea, Denies loose stools, Denies nausea, Denies odynophagia and Denies vomiting Reports no additional complaints Musc Reports no additional complaints Neuro Reports no additional complaints Psych Reports no additional complaints Endo Reports no additional complaints Physical Exam Vital Signs: Last Vital Signs Pulse 70 02/04/25 09:50 BP 152/82 H 02/04/25 09:50 Pulse Ox 100 02/04/25 09:50 Oxygen Delivery Method Room Air 02/04/25 09:50 BMI result Body Mass Index 26.6 Const General: healthy appearing, no acute distress and well developed Nutritional Appearance: well nourished Orientation/consciousness: patient oriented x3 Resp Effort & Inspection: normal respiratory effort, able to speak in complete sentences, no tracheal deviation and symmetric chest movement Auscultation: clear to auscultation bilaterally Cardio Rate: regular rate GI Inspection: Yes normal to inspection and No distended Palpation (GI): Soft to palpation, not firm, nontender and No hepatosplenomegaly present Auscultation: normal bowel sounds General: Yes no CVA tenderness Back/Spine/Pelvis Back: no CVA tenderness Skin General skin exam: elasticity normal, turgor normal and dry skin Neuro General: patient oriented x3 Psych Appearance: grossly normal Mental Status: mental status grossly normal Assessment & Plan Assessment & Plan (1) GERD (gastroesophageal reflux disease): Code(s): K21.9 - Gastro-esophageal reflux disease without esophagitis Category: Medical Qualifiers: Esophagitis presence: esophagitis presence not specified Qualified Code(s): K21.9 - Gastro-esophageal reflux disease without esophagitis (2) Constipation: Code(s): K59.00 - Constipation, unspecified Qualifiers: Constipation type: slow transit constipation Qualified Code(s): K59.01 - Slow transit constipation (3) RLQ abdominal pain: Code(s): R10.31 - Right lower quadrant pain (4) LLQ abdominal pain: Code(s): R10.32 - Left lower quadrant pain Plan Patient will start taking Linzess. Increase fluid intake and activity to promote better bowel motility. Continue PPI therapy. Avoid dietary triggers and late night snacking. Patient reports tenderness in the right lower and left lower quadrant going across the whole lower of his abdomen. Will be sent for CT scan. Pain most likely related due to constipation, diverticulosis versus diverticulitis. Patient will follow-up in 4-5 weeks, sooner on as needed basis. He is agreeable to this plan and verbalizes understanding of instructions. He was given the opportunity to ask questions and all questions answered. Thank you for allowing me to participate in his care Orders: Orders Creatinine Today R10.11 - Right upper quadrant pain CT abdomen pelvis w IV con Today R10.9 - Unspecified abdominal pain Blood Urea Nitrogen Today R10.11 - Right upper quadrant pain Medications: New linaclotide (Linzess) 145 mcg PO DAILY 30 caps 4RF K59.04 - Chronic idiopathic constipation Coding Level of Care Code Est Pt Level 4 (05870) Complex EM visit Add On G2211 Diagnoses Gastroesophageal reflux disease, unspecified whether esophagitis present K21.9 Esophagitis presence: esophagitis presence not specified Slow transit constipation K59.01 Constipation type: slow transit constipation RLQ abdominal pain R10.31 LLQ abdominal pain R10.32 Time Spent (min) 35 Comment 25 minutes spent with patient and additional 10 minutes spent reviewing his records
[2025-02-04 09:50] VITALS: BP 152/82; PULSE 70; O2SAT 100; BMI 26.6
--- OUTSIDE RECORDS SUMMARY | 2025-02-04 10:35 | XMS_ITS | Encounter Summary ---
Author Organization [employer] Address [address] [place] [address] Care Team Providers Care Equipment Service Lead Name Role Phone Nieves Sagastume MD Primary Care Provider [phone] Ayah Elana Unavailable Reason for Visit * Reason Comments Med Refill Encounter Details Date Type Department Care Team ([facility] st Contact Info) Description 01/16/2025 Refill [facility] [address] [place] [address] Nieves Sagastume MD [address] [place] [address] Social History Tobacco Use Types Packs/Day Years [...] the past 12 months, has t he [email or web address], oil or water company threatened to shut [...] as of this encounter Plan of Treatment Not on file documented as of this encounter Goals Goal Patient Goal Type Associated Problems Recent Progress Patient-Stated? Author Blood Pressure < 140/90 Blood Pressure 168/80(2024 1:46 PM EDT) No Bam Escalante, PharmD Patient will adhere to medication regimen General No Bam Escalante, PharmD documented as of this encounter Visit Diagnoses Not on filedocumented in this encounter Care Teams Equipment Service Lead Relationship Specialty Start Date End Date Nieves Sagastume MD [address] [place] [phone] PCP - General Family Medicine 07/19/12 Elana Poon [address] [place] [address] [address]rd [place] [phone] Gastroenterology 12/17/24 documented as of this encounter
== END 2025-02-04 10:11 | disposition home or self-care (01) ==
LOC: HO.HGI 09:45
PROVIDERS: PCP Student in an Organized Health Care Education/Training Program; Visit Provider Nurse Practitioner Family
DX: K21.9 Gastro-esophageal reflux disease without esophagitis (principal); K59.01 Slow transit constipation; R10.31 Right lower quadrant pain; R10.32 Left lower quadrant pain
CPT/HCPCS: 99214; G2211

== ENCOUNTER → 2025-02-04 09:44 | Outpatient (BNVA) | payer MEDICARE, MEDICAID, SELFPAY | PROVIDERS: PCP Student in an Organized Health Care Education/Training Program; Visit Provider Nurse Practitioner Family | DX: K21.9 Gastro-esophageal reflux disease without esophagitis (principal); K59.01 Slow transit constipation; R10.31 Right lower quadrant pain; R10.32 Left lower quadrant pain | CPT/HCPCS: 99212 ==

== ENCOUNTER 2025-03-07 12:36 | Outpatient (REF) | payer MEDICARE, MEDICAID, SELFPAY ==
--- NOTE | ~2025-03-07 | CT_ITS ---
EXAMINATION: CT ABDOMEN AND PELVIS WITH CONTRAST CLINICAL INFORMATION: Unspecified abdominal pain. COMPARISON: None available. TECHNIQUE: Multidetector volumetric images were obtained from the superior aspect of the liver through the pubic symphysis following administration 85 mL of Omnipaque 350 intravenous contrast. Sagittal and coronal reformatted images were obtained on the technologist's workstation. Oral contrast: Yes This CT examination was performed using dose optimization techniques as appropriate, variously including the following: *Automated exposure control *Adjustment of mA and/or kV according to patient size (this includes techniques or standardized protocols for targeted exams where dose is matched to indication/reason for exam; i.e. extremities or head) *Use of iterative reconstruction technique. DLP: 333 mGy centimeter. FINDINGS: LUNG BASES: Subtle pulmonary mosaic pattern. No acute airspace disease. LIVER, GALLBLADDER, AND BILIARY TREE: Liver measures 15 cm. No focal mass. The main portal veins and hepatic veins are patent. No pericholecystic fluid collection or gallbladder wall thickening. No intrahepatic or extrahepatic biliary ductal dilatation. PANCREAS: No focal lesion. No peripancreatic fluid collection. No main pancreatic ductal dilatation. SPLEEN: 7 cm. No focal mass. ADRENAL GLANDS: No nodular lesions. KIDNEYS AND URETERS: No hydronephrosis. No gross nephrolithiasis. No gross enhancing mass. Normal enhancement pattern of the renal parenchyma. BLADDER: [Fluid-filled. GASTROINTESTINAL TRACT: Hiatal hernia, moderate to large volume. Abundant stool throughout the large intestine with fluid. No pneumatosis intestinalis. No intestinal obstruction pattern. No intestinal wall thickening. I do not see the appendix, though no edema pattern in the mesocecum. ABDOMINAL WALL: Small fat-containing umbilical hernia. LYMPH NODES: Nonspecific mildly prominent mesenteric. VASCULAR: Mixed plaques throughout the abdominal aorta wall without aneurysm or dissection. Mixed plaques in the iliac arteries the femoral arteries and the origin of the mesenteric arteries and main renal arteries. PELVIC VISCERA: Not enlarged. OSSEOUS STRUCTURES: Spondylosis L5-S1 resulting in grade 1 retrolisthesis on a degenerative basis with bilateral neuroforamina stenosis likely compressing the exiting nerve roots. Fatty density lesion between the external oblique and transverse muscle, left lateral abdominal wall. Broad-based disc bulging at L4-5 resulting in central spinal canal stenosis. CT/CT abdomen pelvis w IV con IMPRESSION: Hiatal hernia, moderate to large volume. Probable diarrhea without intestinal obstruction pattern. Small fat-containing umbilical hernia. 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 Atherosclerosis disease. Fleischner guidelines were followed. Electronically signed by: Gregory Dailey MD 03/07/2025 03:21 PM EDT
--- OUTSIDE RECORDS SUMMARY | 2025-03-07 12:38 | XMS_ITS | Encounter Summary ---
Author Organization [employer] Address [address] [place] [address] Care Team Providers Care Records Management Engineer Name Role Phone Nieves Sagastume MD Primary Care Provider [phone] Ayah Elana Unavailable Reason for Visit * Reason Comments Med Refill Encounter Details Date Type Department Care Team ([facility] st Contact Info) Description 01/16/2025 Refill [facility] CHC MED & PEDS [address] [place] [address] Nieves Sagastume MD [address] [place] [address] Social History Tobacco Use Types Packs/Day Years [...] the past 12 months, has t he [employer], oil or water company threatened to [...] on filedocumented in this encounter Care Teams Records Management Engineer Relationship Specialty Start Date End Date Nieves Sagastume MD [address] [place] [id number] PCP - General Family Medicine 07/19/12 Elana Poon [address] [place] [address] 3rd [place] [address] Gastroenterology 12/17/24 documented as of this encounter
[2025-03-07 13:51] LABS: Blood Urea Nitrogen 12 mg/dL (9-16); Estimated Glomerular Filt Rate > 60
[2025-03-07] MEDS: iohexoL 350 MG/ML 100 ML INFUS..BTL IV (14:52)
[2025-03-07] MEDS: Barium Sulfate Oral (Berry) 450 ML ORAL.SUSP 900 ML PO (14:53)
== END 2025-03-07 12:37 | disposition home or self-care (01) ==
LOC: HO.CT 12:36
PROVIDERS: PCP Student in an Organized Health Care Education/Training Program; Visit Provider Nurse Practitioner Family
DX: R10.11 Right upper quadrant pain (principal)
CPT/HCPCS: 36415; 74177; 82565; 84520; Q9967

== ENCOUNTER → 2025-03-07 12:38 | Outpatient (BNV) | payer MEDICARE, MEDICAID, SELFPAY | PROVIDERS: PCP Student in an Organized Health Care Education/Training Program; Visit Provider Radiology Diagnostic Radiology | DX: K44.9 Diaphragmatic hernia without obstruction or gangrene (principal) | CPT/HCPCS: 74177 ==

== ENCOUNTER 2025-03-19 10:03 | Outpatient (AMB) | payer MEDICARE, MEDICAID, SELFPAY ==
--- NOTE | 2025-03-19 10:07 | MHC.OFFVIS ---
Vital Signs 03/19/25 10:08 Height 5 ft 7 in Weight 170 lb BMI 26.6 BP 142/72 H Blood Pressure Location Rt brachial Position Sitting Pulse 74 Pulse Source Pulse Oximeter Pulse Oximetry (%) 100 Oxygen Delivery Method Room Air Intake Visit Reasons: 5 wks Intake Note: Est pt for mgmt of GERD + CIC. CT done. CC: Pt denies any changes or new sx since last visit. Assistant Manager Trainee Required: No Assistant Manager Trainee Services: Assistant Manager Trainee Offered & Declined Accompanied by: Self / Same As Patient Allergies No Known Allergies (No Known Allergies*) Allergy (Verified 02/04/25 09:50) HPI HPI 5 wks: Details: LAST VISIT: GERD (gastroesophageal reflux disease) Constipation RLQ abdominal pain LLQ abdominal pain Plan Patient will start taking Linzess. Increase fluid intake and activity to promote better bowel motility. Continue PPI therapy. Avoid dietary triggers and late night snacking. Patient reports tenderness in the right lower and left lower quadrant going across the whole lower of his abdomen. Will be sent for CT scan. Pain most likely related due to constipation, diverticulosis versus diverticulitis. Patient will follow-up in 4-5 weeks, sooner on as needed basis. He is agreeable to this plan and verbalizes understanding of instructions. He was given the opportunity to ask questions and all questions answered. ? Thank you for allowing me to participate in his care Orders Creatinine Today R10.11 CT abdomen pelvis w IV con Today R10.9 Blood Urea Nitrogen Today R10.11 New linaclotide (Linzess) 145 mcg PO DAILY 30 caps 4RF K59.04 TODAY'S VISIT Patient is here today for follow-up and to discuss CT scan results and how to prep before sending him for colonoscopy. Patient reports that he still has abdominal pain CT scan showed no acute processes except for moderate amount of stool in his large colon. Patient reports that he is having epigastric pain in the past couple weeks and reflux he is taking omeprazole daily. Patient denies any nausea or vomiting. Postprandial abdominal bloating sometimes no matter what he eats. Patient denies any issues with anesthesia in the past. No history of sleep apnea. Patient is on low-dose aspirin. Denies any cardiac or respiratory symptoms. [facility] Medical History Dysphagia Tubular adenoma of colon Coronary artery disease Polysubstance abuse GERD (gastroesophageal reflux disease) Hyperlipidemia Hypothyroid Surgical History History of surgery Social History Substance Use Type: Crack/Cocaine Review of Systems Const Denies weight gain and Denies weight loss ENT Reports no additional complaints, Denies dysphagia and Denies odynophagia Card Reports no additional complaints Resp Reports no additional complaints GI Denies abdominal pain, Denies belching, Denies melena, Reports bloating, Reports hematochezia (Occasional), Denies change in bowel habits, Reports constipation, Denies dysphagia, Denies excessive flatus, Denies dyspepsia, Reports heartburn, Denies diarrhea, Denies loose stools, Denies nausea, Denies odynophagia and Denies vomiting Reports no additional complaints Musc Reports no additional complaints Neuro Reports no additional complaints Psych Reports no additional complaints Endo Reports no additional complaints Physical Exam Vital Signs: Last Vital Signs Pulse 74 03/19/25 10:08 BP 142/72 H 03/19/25 10:08 Pulse Ox 100 03/19/25 10:08 Oxygen Delivery Method Room Air 03/19/25 10:08 BMI result Body Mass Index 26.6 Const General: healthy appearing, no acute distress and well developed Nutritional Appearance: well nourished Orientation/consciousness: patient oriented x3 Resp Effort & Inspection: normal respiratory effort, able to speak in complete sentences, no tracheal deviation and symmetric chest movement Auscultation: clear to auscultation bilaterally Cardio Rate: regular rate GI Inspection: Yes normal to inspection and No distended Palpation (GI): Soft to palpation, not firm, nontender and No hepatosplenomegaly present Auscultation: normal bowel sounds General: Yes no CVA tenderness Back/Spine/Pelvis Back: no CVA tenderness Skin General skin exam: elasticity normal, turgor normal and dry skin Neuro General: patient oriented x3 Psych Appearance: grossly normal Mental Status: mental status grossly normal Results Reviewed Results Reviewed: CT SCAN OF ABDOMEN AND PELVIS FINDINGS: LUNG BASES: Subtle pulmonary mosaic pattern. No acute airspace disease. LIVER, GALLBLADDER, AND BILIARY TREE: Liver measures 15 cm. No focal mass. The main portal veins and hepatic veins are patent. No pericholecystic fluid collection or gallbladder wall thickening. No intrahepatic or extrahepatic biliary ductal dilatation. PANCREAS: No focal lesion. No peripancreatic fluid collection. No main pancreatic ductal dilatation. SPLEEN: 7 cm. No focal mass. ADRENAL GLANDS: No nodular lesions. KIDNEYS AND URETERS: No hydronephrosis. No gross nephrolithiasis. No gross enhancing mass. Normal enhancement pattern of the renal parenchyma. BLADDER: [Fluid-filled. GASTROINTESTINAL TRACT: Hiatal hernia, moderate to large volume. Abundant stool throughout the large intestine with fluid. No pneumatosis intestinalis. No intestinal obstruction pattern. No intestinal wall thickening. I do not see the appendix, though no edema pattern in the mesocecum. ABDOMINAL WALL: Small fat-containing umbilical hernia. LYMPH NODES: Nonspecific mildly prominent mesenteric. VASCULAR: Mixed plaques throughout the abdominal aorta wall without aneurysm or dissection. Mixed plaques in the iliac arteries the femoral arteries and the origin of the mesenteric arteries and main renal arteries. PELVIC VISCERA: Not enlarged. OSSEOUS STRUCTURES: Spondylosis L5-S1 resulting in grade 1 retrolisthesis on a degenerative basis with bilateral neuroforamina stenosis likely compressing the exiting nerve roots. Fatty density lesion between the external oblique and transverse muscle, left lateral abdominal wall. Broad-based disc bulging at L4-5 resulting in central spinal canal stenosis. CT/CT abdomen pelvis w IV con IMPRESSION: Hiatal hernia, moderate to large volume. Probable diarrhea without intestinal obstruction pattern. Small fat-containing umbilical hernia. 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 Atherosclerosis disease. Fleisc Assessment & Plan Assessment & Plan (1) GERD (gastroesophageal reflux disease): Code(s): K21.9 - Gastro-esophageal reflux disease without esophagitis Category: Medical Qualifiers: Esophagitis presence: esophagitis presence not specified Qualified Code(s): K21.9 - Gastro-esophageal reflux disease without esophagitis (2) Constipation: Code(s): K59.00 - Constipation, unspecified Qualifiers: Constipation type: slow transit constipation Qualified Code(s): K59.01 - Slow transit constipation (3) Right lower quadrant abdominal pain: Code(s): R10.31 - Right lower quadrant pain (4) Left lower quadrant abdominal pain: Code(s): R10.32 - Left lower quadrant pain (5) Screen for colon cancer: Code(s): Z12.11 - Encounter for screening for malignant neoplasm of colon Plan What to expect before during and after procedure discussed with patient. Will send him for upper endoscopy could be as well. Stressed the importance of good bowel prep and clear liquid diet before procedure. Patient will increase Linzess to 145 mcg daily. Increase fluid intake and activity to promote better bowel motility. Continue omeprazole. Avoid dietary triggers and late night snacking. Staying upright for minimum 3 hours after meals discussed with patient. Patient will be sent for upper GI with barium swallow. He reports worsening reflux. Denies dyspepsia, dysphagia or odynophagia. I will see patient after the procedure, sooner on as needed basis. He is agreeable to current plan of care and verbalizes understanding of instructions. He was given the opportunity to ask questions and all questions answered. Thank you for allowing me to participate in his care Orders: Orders [place] upper GI w Ba Swallow Today K21.9 - Gastro-esophageal reflux disease without esophagitis Medications: New linaclotide (Linzess) 290 mcg PO QAM 30 caps 4RF K59.00 - Constipation, unspecified polyethylene glycol 3350 (Miralax) As directed by gastroenterology department at [facility] 238 grams PO ONCE 238 grams 0RF Z12.11 - Encounter for screening for malignant neoplasm of colon Discontinued linaclotide (Linzess) Discontinued Reason: Doctor's Order 145 mcg PO DAILY 30 caps 4RF K59.04 - Chronic idiopathic constipation Coding Level of Care Code Est Pt Level 4 (10080) Complex EM visit Add On G2211 Diagnoses Gastroesophageal reflux disease, unspecified whether esophagitis present K21.9 Esophagitis presence: esophagitis presence not specified Slow transit constipation K59.01 Constipation type: slow transit constipation Right lower quadrant abdominal pain R10.31 Left lower quadrant abdominal pain R10.32 Screen for colon cancer Z12.11 Time Spent (min) 40 Comment 25 minutes spent with patient and additional 15 minutes spent reviewing his records
[2025-03-19 10:08] VITALS: BP 142/72; PULSE 74; O2SAT 100; BMI 26.6
--- OUTSIDE RECORDS SUMMARY | 2025-03-19 10:42 | XMS_ITS | Encounter Summary ---
Author Organization [employer] Address [address] [facility] [address] [place] [address] Care Team Providers Care Septic Tank Service Technician Name Role Phone Nieves Sagastume MD Primary Care Provider [phone] Ayah Elana Unavailable Reason for Visit * Reason Comments Med Refill Encounter Details Date Type Department Care Team ([facility] st Contact Info) Description 01/16/2025 Refill [facility] CHC MED & PEDS [address] [place] [address] Nieves Sagastume MD [address] [place] [address] Social History Tobacco Use Types Packs/Day Years [...] the past 12 months, has t he [employer], oil or water company threatened to shut [...] on filedocumented in this encounter Care Teams Septic Tank Service Technician Relationship Specialty Start Date End Date Nieves Sagastume MD [address] [place] [id number] PCP - General Family Medicine 07/19/12 Elana Poon [address] [place] [address] 3rd [place] [address] Gastroenterology 12/17/24 documented as of this encounter
== END 2025-03-19 10:37 | disposition home or self-care (01) ==
PROVIDERS: PCP Student in an Organized Health Care Education/Training Program; Visit Provider Nurse Practitioner Family
DX: K21.9 Gastro-esophageal reflux disease without esophagitis (principal); K59.01 Slow transit constipation; R10.31 Right lower quadrant pain; R10.32 Left lower quadrant pain
CPT/HCPCS: 99214; G2211

== ENCOUNTER → 2025-03-19 10:03 | Outpatient (BNVA) | payer MEDICARE, MEDICAID, SELFPAY | PROVIDERS: PCP Student in an Organized Health Care Education/Training Program; Visit Provider Nurse Practitioner Family | DX: K21.9 Gastro-esophageal reflux disease without esophagitis (principal); K59.01 Slow transit constipation; R10.31 Right lower quadrant pain; R10.32 Left lower quadrant pain; Z79.899 Other long term (current) drug therapy | CPT/HCPCS: 99212 ==

== ENCOUNTER 2025-05-23 09:32 | Outpatient (REF) | payer MEDICARE, MEDICAID, SELFPAY ==
--- OUTSIDE RECORDS SUMMARY | 2025-05-23 10:45 | XMS_ITS | Encounter Summary ---
Author Organization [email or web address] Address [address] [place] [address] Care Team Providers Care Diamond Sorter Name Role Phone Nieves Sagastume MD Primary Care Provider [phone] Ayah Elana Unavailable Reason for Visit * Reason Comments Med Refill Encounter Details Date Type Department Care Team ([facility] st Contact Info) Description 01/16/[address] [facility] CHC MED & PEDS [address] [place] [address] Nieves Sagastume MD [address] [place] [address] Social History Tobacco Use Types Packs/Day Years [...] the past 12 months, has t he [employer], [employer], oil or water company threatened to shut [...] on filedocumented in this encounter Care Teams Diamond Sorter Relationship Specialty Start Date End Date Nieves Sagastume MD [address] [place] [id number] PCP - General Family Medicine 07/19/12 Elana Poon [address] [place] [address] 3rd [place] [address] Gastroenterology 12/17/24 documented as of this encounter
--- OUTSIDE RECORDS SUMMARY | 2025-05-23 10:45 | XMS_ITS | Encounter Summary ---
Author Organization [employer] Address [address] [place] [address] Care Team Providers Care Transition Specialist Name Role Phone Nieves Sagastume MD Primary Care Provider [phone] Ayah Elana Unavailable Reason for Visit * Reason Comments Med Refill Encounter Details Date Type Department Care Team ([facility] st Contact Info) Description 01/15/2025 Refill [facility] CHC MED & PEDS [address] [place] [address] Nieves Sagastume MD [address] [place] [address] Social History Tobacco Use Types Packs/Day Years [...] the past 12 months, has t he [employer], oil or water company threatened to shut [...] on filedocumented in this encounter Care Teams Transition Specialist Relationship Specialty Start Date End Date Nieves Sagastume MD [address] [place] [id number] PCP - General Family Medicine 07/19/12 Elana Poon [address] [place] [address] 3rd [place] [address] Gastroenterology 12/17/24 documented as of this encounter
--- OUTSIDE RECORDS SUMMARY | 2025-05-23 10:45 | XMS_ITS | Clinical Summary ---
Author Organization [employer] Address [address] [place] [address] Care Team Providers Care Leadership Program Associate Name Role Phone Nieves Sagastume MD Primary Care Provider [phone] Elana Poon Unavailable Allergies No known active [...] ONCE DAILY NEEDED. 15 tablet 3 Active Mometasone Furoate (Asmanex HFA) 200 MCG/ACT aerosol Use BId 13 g 3 4 Active budesonide (Pulmicort) 90 MCG/ACT inhaler Inhale 1 puff in the morning and at bedtime. Rinse mouth with water after use to reduce aftertaste and incidence of candidiasis. Do not swallow. 1 each 11 4 Active omeprazole (PriLOSEC) [address] capsule [...] candidiasis. Do not swallow. 1 each 11 5 10/25/19 26 Active lisinopril 10 MG tablet Take 1 tablet (10 mg) by mouth Once per day. 30 tablet 11 5 11/13/19 26 Active levothyroxine (Synthroid, Levoxyl) 125 MCG tabletIndication s:Hypothyroidism , unspecified type TAKE ONE TABLET EVERY MORNING 90 tablet 1 5 Active carvedilol (Coreg) 12.5 MG tablet TAKE ONE TABLET IN THE MORNING AND EVENING 180 tablet 5 Active atorvastatin (Lipitor) 40 MG tablet TAKE ONE TABLET EVERY NIGHT AT BEDTIME 90 tablet 5 Active Active Problems Problem Noted Date Diagnosed Date Benign prostatic hyperplasia with lower urinary tract symptoms 05/13/2024 Arthritis 05/13/2024 STEMI (ST elevation myocardial infarction) 05/13 Conductive hearing loss, bilateral 05/13/2024 Hypothyroidism 01/13/2017 Hypercholesterolemia 11/29/2012 Benign hypertension 11/12/2012 Encounters Date Type Department Care Team Description 04/18/2025 Refill [facility] [address] [place] [address] Elin Butler MD 03/07/2025 Orders Only [facility] External Provider, [facility] from Last 3 Months Immunizations Immunization Administration [...] 64 11/12/2024 10:25 AM EDT Temperature 36.7 C (98 F) 11/12/2024 10:25 AM EDT Respiratory Rate 18 [...] 1958 FIT 1958 FOBT 1958 Sigmoidoscopy 1958 Alcohol/Substance Use Screening 1970 Hepatitis C Screening 1976 RSV Patients and Patients Aged 60 years or older (1 - Risk 60-74 years 1-dose series) 2018 Colonoscopy 11/08/2021 11/08/2016 Colorectal Cancer Screening 11/08/2021 Zoster Vaccines (2 of 2) 01/17/2023 11/22/2022 Dental Oral Exam 04/15/2023 10/12/2022 COVID-19 Vaccine (1 - 2023-2 5 season) 2025 Influenza Vaccine (#1) 2025 7, 05/27/2014 Depression Screening 05/13/2025 05/13/2024, 05/13/2024 SDOH Screening 05/13/2025 05/13/2024 Tobacco Screening 11/12/2025 11/12/2024 Lipid Panel 11/21/2029 [...] Blood Pressure 168/80(2024 1:46 PM EDT) No Dellogono, Bam, PharmD Patient will adhere to medication regimen General No Dellogono, Bam, PharmD Procedures Procedure Name Priority Date/Time Associated Diagnosis Comments CT ABDOMEN PELVIS W CONTRAST Routine 03/07/2025 2:40 PM EDT CREATININE, SERUM Routine 03/07/2025 12: 59 PM EDT UREA NITROGEN (BUN) Routine 03/07/2025 1 2:59 PM EDT LIPID PANEL, STANDARD Routine 11/21/2024 8:57 AM EDT Benign hypertension Hypercholesterolemi a PERIODIC ORAL EVALUATION - ESTABLISHED PATIENT Routine 10/12/2022 2:00 PM EST HM COLONOSCOPY Routine 11/08/2016 from Last 3 Months or Most Recently Relevant to Health Maintenance Results * CT Abdomen Pelvis w/ Contrast (03/07/2025 2:40 PM EDT) Anatomical Region Laterality Modality Body, Pelvis, Abdomen Computed T omography 03/07/2025 2:40 PM EDT Narrative 03/07/2025 3:24 PM EDT [place] [id number] [address] Scan Report Signed Patient: Jamshid Mariscal MR#: [id number] 225 : 1960 Acct:[id number] Age/Sex: 64 / M ADM Date: 03/07/25 Loc: HO.CT Attending Dr: Elana BRANNON- Ordering Physician: Elana Poon-CORRY Date of Service: 03/07/25 Procedure(s): CT abdomen pelvis w IV con Accession Number(s): [id number] cc: Elana Poon HOT BOX CHECKER-; Nieves Sagastume MD Report Number: [id number]: Total DLP = 333.00 mGy-cm EXAMINATION: CT ABDOMEN AND PELVIS WITH CONTRAST CLINICAL INFORMATION: Unspecified abdominal pain. COMPARISON: None available. TECHNIQUE: Multidetector volumetric images were obtained from the superior aspect of the liver through the pubic symphysis following administration 85 mL of Omnipaque 350 intravenous contrast. Sagittal and coronal reformatted images were obtained on the technologist's workstation. Oral contrast: Yes This CT examination was performed using dose optimization techniques as appropriate, variously including the following: *Automated exposure control *Adjustment of mA and/or kV according to patient size (this includes techniques or standardized protocols for targeted exams where dose is matched to indication/reason for exam; i.e. extremities or head) *Use of iterative reconstruction technique. DLP: 333 mGy centimeter. FINDINGS: LUNG BASES: Subtle pulmonary mosaic pattern. No acute airspace disease. LIVER, GALLBLADDER, AND BILIARY TREE: Liver measures 15 cm. No focal mass. The main portal veins and hepatic veins are patent. No pericholecystic fluid collection or gallbladder wall thickening. No intrahepatic or extrahepatic biliary ductal dilatation. PANCREAS: No focal lesion. No peripancreatic fluid collection. No main pancreatic ductal dilatation. SPLEEN: 7 cm. No focal mass. ADRENAL GLANDS: No nodular lesions. KIDNEYS AND URETERS: No hydronephrosis. No gross nephrolithiasis. No gross enhancing mass. Normal enhancement pattern of the renal parenchyma. BLADDER: [Fluid-filled. GASTROINTESTINAL TRACT: Hiatal hernia, moderate to large volume. Abundant stool throughout the large intestine with fluid. No pneumatosis intestinalis. No intestinal obstruction pattern. No intestinal wall thickening. I do not see the appendix, though no edema pattern in the mesocecum. ABDOMINAL WALL: Small fat-containing umbilical hernia. LYMPH NODES: Nonspecific mildly prominent mesenteric. VASCULAR: Mixed plaques throughout the abdominal aorta wall without aneurysm or dissection. Mixed plaques in the iliac arteries the femoral arteries and the origin of the mesenteric arteries and main renal arteries. PELVIC VISCERA: Not enlarged. OSSEOUS STRUCTURES: Spondylosis L5-S1 resulting in grade 1 retrolisthesis on a degenerative basis with bilateral neuroforamina stenosis likely compressing the exiting nerve roots. Fatty density lesion between the external oblique and transverse muscle, left lateral abdominal wall. Broad-based disc bulging at L4-5 resulting in central spinal canal stenosis. CT/CT abdomen pelvis w IV con IMPRESSION: Hiatal hernia, moderate to large volume. Probable diarrhea without intestinal obstruction pattern. Small fat-containing umbilical hernia. 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 Atherosclerosis disease. Fleischner guidelines were followed. Electronically signed by: Gregory Dailey MD 03/07/2025 03:21 PM EDT Dictated By: Gregory Dickinson MD Signed By: <Electronically signed by Gregory Bermudez MD in OV> 03/07/25 1521 DD/ 1440 TD/TT: 03/07/25 1454 Director Of Manufacturing: Procedure Note Donotuseinterpreter, Image - 03/07/[address] [place] [id number] [address] Scan Report Signed Patient: Elsa Mariscal#: [id number] 225 : 8Acct:[id number] Age/Sex: 64 / MADM Date: 03/07/25 Loc: HO.CT Attending Dr: Elana FELDMAN Ordering Physician: Elana Poon Date of Service: 03/07/25 Procedure(s): CT abdomen pelvis w IV con Accession Number(s): [id number] cc: Elana Poon; Nieves Sagastume MD Report Number: [id number]: Total DLP = 333.00 mGy-cm EXAMINATION: CT ABDOMEN AND PELVIS WITH CONTRAST CLINICAL INFORMATION: Unspecified abdominal pain. COMPARISON: None available. TECHNIQUE: Multidetector volumetric images were obtained from the superior aspect of the liver through the pubic symphysis following administration 85 mL of Omnipaque 350 intravenous contrast. Sagittal and coronal reformatted images were obtained on the technologist's workstation. Oral contrast: Yes This CT examination was performed using dose optimization techniques as appropriate, variously including the following: *Automated exposure control *Adjustment of mA and/or kV according to patient size (this includes techniques or standardized protocols for targeted exams where dose is matched to indication/reason for exam; i.e. extremities or head) *Use of iterative reconstruction technique. DLP: 333 mGy centimeter. FINDINGS: LUNG BASES: Subtle pulmonary mosaic pattern. No acute airspace disease. LIVER, GALLBLADDER, AND BILIARY TREE: Liver measures 15 cm. No focal mass. The main portal veins and hepatic veins are patent. No pericholecystic fluid collection or gallbladder wall thickening. No intrahepatic or extrahepatic biliary ductal dilatation. PANCREAS: No focal lesion. No peripancreatic fluid collection. No main pancreatic ductal dilatation. SPLEEN: 7 cm. No focal mass. ADRENAL GLANDS: No nodular lesions. KIDNEYS AND URETERS: No hydronephrosis. No gross nephrolithiasis. No gross enhancing mass. Normal enhancement pattern of the renal parenchyma. BLADDER: [Fluid-filled. GASTROINTESTINAL TRACT: Hiatal hernia, moderate to large volume. Abundant stool throughout the large intestine with fluid. No pneumatosis intestinalis. No intestinal obstruction pattern. No intestinal wall thickening. I do not see the appendix, though no edema pattern in the mesocecum. ABDOMINAL WALL: Small fat-containing umbilical hernia. LYMPH NODES: Nonspecific mildly prominent mesenteric. VASCULAR: Mixed plaques throughout the abdominal aorta wall without aneurysm or dissection. Mixed plaques in the iliac arteries the femoral arteries and the origin of the mesenteric arteries and main renal arteries. PELVIC VISCERA: Not enlarged. OSSEOUS STRUCTURES: Spondylosis L5-S1 resulting in grade 1 retrolisthesis on a degenerative basis with bilateral neuroforamina stenosis likely compressing the exiting nerve roots. Fatty density lesion between the external oblique and transverse muscle, left lateral abdominal wall. Broad-based disc bulging at L4-5 resulting in central spinal canal stenosis. CT/CT abdomen pelvis w IV con IMPRESSION: Hiatal hernia, moderate to large volume. Probable diarrhea without intestinal obstruction pattern. Small fat-containing umbilical hernia. 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 Atherosclerosis disease. Fleischner guidelines were followed. Electronically signed by: Gregory Dailey MD 03/07/2025 03:21 PM EDT Dictated By: Gregory Dickinson MD Signed By: <Electronically signed by Gregory Bermudez MDin OV> 03/07/25 1521 DD/ 1440 TD/TT: 03/07/25 1454 Director Of Manufacturing: [facility] External Provider IMG CT PROCEDURES Final Result * Creatinine, Serum (03/07/2025 12:59 PM EDT) Creatinine, Serum 1.00 0.5 - 1.4 mg/dL [facility] Estimated Glomerular Filt Rate >60 [facility] Comment:Chronic Kidney Disea se: Estimated GFR < 60 mL/min/[id number] Kidney Disease: Estimated GFR < 15 mL/min/1.73m2 03/07/2025 12:5 9 PM EDT 03/07/2025 12:59 PM EDT Generic External Data Provider LAB BLOOD ORDERAB LES Final Result Performing Organization Address [facility]/ZIP Co de Phone Number [facility] [address] [place] [phone] * BUN (Blood Urea Nitrogen) (03/07/2025 12:59 PM EDT) Urea Nitrogen (BUN) 12 9 - 16 mg/dL [facility] 03/07/2025 12:5 9 PM EDT 03/07/2025 12:59 PM EDT Generic External Data Provider LAB BLOOD ORDERAB LES Final Result Performing Organization Address [facility]/ZIP Co de Phone Number [facility] [address] [place] [phone] * (ABNORMAL) Lipid Panel, Standard (11/21/2024 8:57 AM EDT) Triglycerides 163(H) <150 mg/dL [facility] Comment:Desirable Triglyceri de: less than 150 mg/dLBorderline High Triglyceride 150-199 mg/dLHigh Triglyceride: 200-499 mg/dLVery High Triglyceride: greater than or equal to 5OO mg/dL Cholesterol 147 <200 mg/dL [facility] Comment:Desirable Cholestero l: less than 200 mg/dLBorderline High Cholesterol: 200-239 mg/dLHigh Cholesterol: greater than 239 mg/dL LDL Cholesterol Calculated 75 <100 mg/dL [facility] Comment:Desirable LDL: less than 100 mg/dLNear Optimal/Above Optimal LDL: 110- 129 mg/dLBorderline High LDL: 130-159 mg/dLHigh LDL: 160-189 mg/dLVery High LDL: greater than or equal to 190 mg/dL HDL Cholesterol 40(L) >40 mg/dL [facility] Comment:Desirable HDL: great er than 40 mg/dL Note: This HDL assay may give artificially low results in patients with liver disease. Blood Venous blood specimen / Unknown 11/21/2024 8:57 AM EDT 11/21/2024 2:13 PM EDT Nieves Sagastume MD LAB BLOOD ORDERABLES Final Resul t [facility] [address] [place] [phone] * Colonoscopy (11/08/2016) Colonoscopy Normal Normal Historical Provider HEALTH MAINTENANCE Final Result from Last 3 Months or Most Recently Relevant to Health Maintenance Insurance [place] [address] [place] [id number] [facility] STANDARD DENTAL-[facility] MEDICAID STAND ADULT Care Teams Leadership Program Associate Relationship Specialty Start Date End Date Nieves Sagastume MD [address] [place] [phone] PCP - General Family Medicine 07/19/12 Elana Poon [address] [place] [address] [address] [place], [place] Gastroenterology 12/17/24
== END 2025-05-23 09:33 | disposition home or self-care (01) ==
LOC: HO.HAP 09:32
PROVIDERS: Visit Provider Student in an Organized Health Care Education/Training Program
DX: Z46.1 Encounter for fitting and adjustment of hearing aid (principal); H90.3 Sensorineural hearing loss, bilateral
CPT/HCPCS: V5266

== ENCOUNTER 2025-07-17 09:13 | Outpatient (REF) | payer MEDICARE, MEDICAID, SELFPAY ==
--- NOTE | ~2025-07-17 | FL_ITS ---
EXAMINATION: XR UPPER GI SERIES WITH barium swallow CLINICAL INFORMATION: Gastroesophageal reflux disease without esophagitis COMPARISON: None available. TECHNIQUE: Patient was administered thin and thick barium and effervescent granules. Barium tablet was also administered. FINDINGS: The swallowing mechanism is normal. No aspiration or penetration. Esophageal motility is normal. There is a small to moderate hiatal hernia. There is severe gastroesophageal reflux. No mass or stricture or evidence of esophagitis seen. Barium tablet passed freely into the stomach. The stomach and duodenum are otherwise normal appearing. No fold thickening, mass, ulcer or stricture. FLUOROSCOPY TIME: 1 minute 41 seconds DOSE AREA PRODUCT: 1141 uGy-m2 (microgray-meter squared) FL/FL upper GI w air w Ba Swallow IMPRESSION: Small to moderate hiatal hernia and severe gastroesophageal reflux. Electronically signed by: Consuelo Dahl MD 07/17/2025 09:52 AM BK
== END 2025-07-17 09:14 | disposition home or self-care (01) ==
LOC: HO.XRAY 09:13
PROVIDERS: Visit Provider Nurse Practitioner Family
DX: K21.9 Gastro-esophageal reflux disease without esophagitis (principal)
CPT/HCPCS: 74246

== ENCOUNTER → 2025-07-17 09:17 | Outpatient (BNV) | payer MEDICARE, MEDICAID, SELFPAY | PROVIDERS: Visit Provider Radiology Diagnostic Radiology | DX: K21.9 Gastro-esophageal reflux disease without esophagitis (principal); K44.9 Diaphragmatic hernia without obstruction or gangrene | CPT/HCPCS: 74246 ==